=== PATIENT | male | born 1935 | race Caucasian/White ===

== ENCOUNTER 2017-01-20 09:28 | Outpatient (CLI) | payer MEDICARE | END 2017-01-20 09:29 | disposition home or self-care (01) | DX: R42 Dizziness and giddiness (principal); I50.9 Heart failure, unspecified; I73.9 Peripheral vascular disease, unspecified; I48.91 Unspecified atrial fibrillation ==

== ENCOUNTER 2018-03-20 08:52 | Outpatient (CLI) | payer MEDICARE ==
[2018-03-20 13:02] LABS: DIGOXIN 0.5 ng/mL
== END 2018-03-20 08:53 | disposition home or self-care (01) ==
LOC: LAB.WCP 08:52
PROVIDERS: ATTEND Family Medicine
DX: I25.5 Ischemic cardiomyopathy (principal); I73.9 Peripheral vascular disease, unspecified; R29.898 Other symptoms and signs involving the musculoskeletal system
CPT/HCPCS: 36415; 80162; 82607; 83921

== ENCOUNTER 2019-01-08 08:00 | Outpatient (CLI) | payer MEDICARE ==
[2019-01-08 19:06] LABS: CALCIUM 8.8 mg/dL (8.5-10.3); CREATININE 1.1 mg/dL (0.6-1.2); URIC ACID 6.7 mg/dL (2.6-7.2)
== END 2019-01-08 23:59 | disposition home or self-care (01) ==
LOC: LAB.WCP 08:00
PROVIDERS: ATTEND Family Medicine
DX: M10.9 Gout, unspecified (principal)
CPT/HCPCS: 36415; 80048; 84550

== ENCOUNTER 2019-08-11 15:20 | Outpatient (CLI) | payer MEDICARE ==
[2019-08-11 19:20] LABS: BASOPHILS # (AUTO) 0.1 10^3/uL (0.0-0.1); BASOPHILS % (AUTO) 0.8 %; EOSINOPHILS # (AUTO) 0.3 10^3/uL (0.0-0.7); EOSINOPHILS % (AUTO) 2.9 %; HGB - HEMOGLOBIN 8.2 g/dL (14.0-18.0); LYMPHOCYTES # (AUTO) 1.2 10^3/uL (1.5-3.5); LYMPHOCYTES % (AUTO) 13.1 %; MEAN CORPUSCULAR HEMOGLOBIN 29.1 pg (27.0-31.0); MEAN CORPUSCULAR HGB CONC 29.9 g/dL (32.0-36.0); MEAN CORPUSCULAR VOLUME 97.2 fL (80.0-94.0); MONOCYTES # (AUTO) 0.6 10^3/uL (0.0-1.0); MONOCYTES % (AUTO) 6.4 %; NEUTROPHILS # (AUTO) 6.9 10^3/uL (1.5-6.6); NEUTROPHILS % (AUTO) 76.1 %; PLT - PLATELET COUNT 265 10^3/uL (130-450); RED BLOOD COUNT 2.82 10^6/uL (4.70-6.10); RED CELL DISTRIBUTION WIDTH 16.9 % (12.0-15.0); WHITE BLOOD COUNT 9.1 x10^3/uL (4.8-10.8)
[2019-08-11 19:38] LABS: ALBUMIN 3.9 g/dL (3.2-5.5); ALBUMIN/GLOBULIN RATIO 1.2 (1.0-2.2); BILIRUBIN,TOTAL 0.6 mg/dL (0.2-1.0); CALCIUM 8.7 mg/dL (8.5-10.3); CREATININE 1.7 mg/dL (0.6-1.2); TOTAL PROTEIN 7.1 g/dL (6.7-8.2)
[2019-08-11 19:47] LABS: FERRITIN 21.6 ng/mL (23.9-336.2)
== END 2019-08-11 23:59 | disposition home or self-care (01) ==
LOC: LAB.WCP 15:20
PROVIDERS: ATTEND Family Medicine
DX: D64.9 Anemia, unspecified (principal)
CPT/HCPCS: 36415; 80053; 82607; 82728; 83540; 84466; 85025

== ENCOUNTER 2019-08-14 13:43 | Inpatient (IN) | payer MEDICARE ==
--- NOTE | 2019-08-14 14:22 | ED Physician Documentation ---
History of Present Illness - Stated complaint Stated Complaint: weakness - Chief complaint Chief Complaint: Neuro - Additonal information Additional information: This is an 83-year-old male with a history of past GI bleed, pacemaker, who pre sents with weakness. Patient has been noticing some very dark stools for around 1 month, he has been progressively weaker during this time. He had labs drawn for preoperative screening for a watchman procedure, and this came back with hemoglobin of 7.6. He does not know what his previous hemoglobin was. He denies any bright red blood per rectum. This morning he felt so weak that his to help him get dressed. No chest pain, no shortness of breath. He used to be on aspirin and Plavix but these were stopped recently because of concern for GI bleed. Review of Systems Constitutional: denies: Fever Nose: denies: Rhinorrhea / runny nose Cardiac: denies: Chest pain / pressure Respiratory: denies: Dyspnea GI: reports: Bloody / black stool. denies: Abdominal Pain : denies: Dysuria Skin: denies: Rash Neurologic: reports: Generalized weakness PD PAST MEDICAL HISTORY - Past Medical History Cardiovascular: Congestive heart failure, Hypertension, High cholesterol, [place], Atrial fibrillation Respiratory: Pneumonia Endocrine/Autoimmune: None GI: GERD, GI bleed : None HEENT: Chronic hearing loss Musculoskeletal: None - Past Surgical History Past Surgical History: Yes Ortho: Rotator cuff repair, Other Cardiovascular: CABG, Coronary stent, Vascular surgery - Present Medications Home Medications: Ambulatory Orders Medication Instructions Recorded Confirmed Allopurinol 300 mg PO DAILY 10/24/14 08/14/19 Atorvastatin Calcium 40 mg PO QPM 10/24/14 08/14/19 Carbidopa/Levodopa [Carbidopa-Levo 1 tab PO QPM PRN 10/24/14 08/14/19 10-100 mg Odt] Carvedilol 37.5 mg PO BID 10/24/14 08/14/19 Furosemide [Lasix] 40 mg PO DAILY 10/24/14 08/14/19 Gabapentin 300 mg PO QPM 10/24/14 08/14/19 Losartan Potassium 50 mg PO BID 10/24/14 08/14/19 Famotidine 10 mg PO QPM 11/24/14 08/14/19 Amlodipine Besylate 5 mg PO QPM 08/14/19 08/14/19 Calcium Carbonate/Vitamin D3 1 tab PO BID 08/14/19 08/14/19 [Calcium 600 + Vit D 400 Tablet] Carbidopa/Levodopa 2 tab PO 1700 08/14/19 08/14/19 [Carbidopa-Levodopa 10-100 Tab] Cyanocobalamin [Vitamin B-12] 1,000 mcg IM Q28D 08/14/19 08/14/19 Ferrous Sulfate 325 mg PO DAILY 08/14/19 08/14/19 Pantoprazole Sodium 40 mg PO QDAC 08/14/19 08/14/19 - Allergies Allergies/Adverse Reactions: Allergies Allergy/AdvReac Type Severity Reaction Status Date / Time lisinopril AdvReac Unknown Verified 08/14/19 13:56 niacin AdvReac Unknown Verified 08/14/19 13:56 simvastatin [From Zocor] AdvReac Unknown Verified 08/14/19 13:56 - Social History Does the pt smoke?: No Smoking Status: Never smoker Does the pt drink ETOH?: Yes Does the pt have substance abuse?: No - Immunizations Immunizations are current?: No Immunizations: TDAP >10years/unknown - POLST Patient has POLST: No PD ED PE NORMAL - Vitals Vital signs reviewed: Yes - General General: Alert and oriented X 3 - HEENT HEENT: Atraumatic, PERRL - Neck Neck: Supple, no meningeal sign - Cardiac Cardiac: RRR, Other (Paced rhythm on the monitor) - Respiratory Respiratory: No respiratory distress, Clear bilaterally - Abdomen Abdomen: Soft, Non tender, Non distended - Rectal Rectal: Other (Guaiac positive stool) - Extremities Extremities: No deformity - Neuro Neuro: Alert and oriented X 3 Results - Vitals Vitals: Oxygen O2 Source [With Activity] Room air O2 Source Room air - Labs Labs: Microbiology 08/14/19 15:45 Blood Culture - Preliminary Blood 08/14/19 15:50 Blood Culture - Preliminary Blood Laboratory Tests 08/14/19 08/14/19 08/14/19 14:06 14:06 14:06 WBC 36.3 H* RBC 2.65 L Hgb 7.6 L Hct 25.3 L MCV 95.5 H MCH 28.7 MCHC 30.0 L RDW 17.0 H Plt Count 245 MPV 12.8 H Neut # (Auto) Not Reportable Lymph # (Auto) Not Reportable Warrick # (Auto) Not Reportable Eos # (Auto) Not Reportable Baso # (Auto) Not Reportable Absolute Nucleated RBC Not Reportable Total Counted 100 Band Neuts % (Manual) 5 Abnorm Lymph % (Manual) 0 Nucleated RBC % Not Reportable Neutrophils # (Manual) 34.5 H Lymphocytes # (Manual) 0.4 L Monocytes # (Manual) 1.1 H Eosinophils # (Manual) 0.4 Basophils # (Manual) 0.0 Differential Comment MANUAL DIFFERENTIAL Manual Slide Review Indicated Platelet Estimate NORMAL (130-450,000) Platelet Morphology NORMAL APPEARANCE RBC Morph Micro Appear 2+ HYPOCHROMASIA PT 15.4 H INR 1.4 H VBG pH VBG pCO2 VBG pO2 VBG HCO3 VBG Total CO2 VBG O2 Saturation VBG Base Excess Sodium 139 Potassium 3.9 Chloride 105 Carbon Dioxide 20 L Anion Gap 14.0 H BUN 49 H Creatinine 2.4 H Estimated GFR (MDRD) 26 L Glucose 201 H Lactic Acid Calcium 8.0 L Total Bilirubin 0.9 AST 22 ALT 20 Alkaline Phosphatase 58 Total Protein 6.7 Albumin 3.5 Globulin 3.2 Albumin/Globulin Ratio 1.1 Lipase 34 Blood Type Blood Type Recheck Antibody Screen Crossmatch IS Only 08/14/19 08/14/19 08/14/19 14:06 15:10 15:50 WBC RBC Hgb Hct MCV MCH MCHC RDW Plt Count MPV Neut # (Auto) Lymph # (Auto) Warrick # (Auto) Eos # (Auto) Baso # (Auto) Absolute Nucleated RBC Total Counted Band Neuts % (Manual) Abnorm Lymph % (Manual) Nucleated RBC % Neutrophils # (Manual) Lymphocytes # (Manual) Monocytes # (Manual) Eosinophils # (Manual) Basophils # (Manual) Differential Comment Manual Slide Review Platelet Estimate Platelet Morphology RBC Morph Micro Appear PT INR VBG pH VBG pCO2 VBG pO2 VBG HCO3 VBG Total CO2 VBG O2 Saturation VBG Base Excess Sodium Potassium Chloride Carbon Dioxide Anion Gap BUN Creatinine Estimated GFR (MDRD) Glucose Lactic Acid 3.2 H* Calcium Total Bilirubin AST ALT Alkaline Phosphatase Total Protein Albumin Globulin Albumin/Globulin Ratio Lipase Blood Type O POSITIVE Blood Type Recheck O POSITIVE Antibody Screen NEGATIVE Crossmatch IS Only See Detail 08/14/19 15:50 WBC RBC Hgb Hct MCV MCH MCHC RDW Plt Count MPV Neut # (Auto) Lymph # (Auto) Warrick # (Auto) Eos # (Auto) Baso # (Auto) Absolute Nucleated RBC Total Counted Band Neuts % (Manual) Abnorm Lymph % (Manual) Nucleated RBC % Neutrophils # (Manual) Lymphocytes # (Manual) Monocytes # (Manual) Eosinophils # (Manual) Basophils # (Manual) Differential Comment Manual Slide Review Platelet Estimate Platelet Morphology RBC Morph Micro Appear PT INR VBG pH 7.399 VBG pCO2 31.7 L VBG pO2 33.4 VBG HCO3 19.2 L VBG Total CO2 20.1 L VBG O2 Saturation 64.4 VBG Base Excess -5.0 L Sodium Potassium Chloride Carbon Dioxide Anion Gap BUN Creatinine Estimated GFR (MDRD) Glucose Lactic Acid Calcium Total Bilirubin AST ALT Alkaline Phosphatase Total Protein Albumin Globulin Albumin/Globulin Ratio Lipase Blood Type Blood Type Recheck Antibody Screen Crossmatch IS Only - Rads (name of study) CXR Radiology: Other (L>R airspace opacity) CT abd/pelvis Radiology: Other (LLL pneumonia, multiple incidental abdominal findings) PD MEDICAL DECISION MAKING - ED course Complexity details: considered differential (GI bleed, PNA, UTI, bacteremia, appendicitis, cholecystitis) ED course: Pt is hemodynamically stable on arrival, BP normal but he is paced so may not mount a typical tachycardia. He has guaiac positive stool and a hemoglobin which is 7.6. Given he is symptomatic and has a history of CAD 1 unit of PRBCs was ordered. WBC is also highly elevated, although patient does not have obvious infectious symptoms on history or exam. CXR shows a possible LLL PNA, which is confirmed on CT. Blood cultures drawn and broad spectrum abx started. Pt was admitted for further work up of his leukocytosis and GI bleed. Lactate is elevated, which may be reflective of sepsis or reduced perfusion from GI bleed. He has a cardiac history and is at risk for overload so IV fluids are best used judiciously, and is not a good candidate for 30ml/kg. He remains hemodynamically stable on admission. Departure - Departure Disposition: 66 [facility] DC/Xfer Clinical Impression: GI bleed Qualifiers: GI bleed type/associated pathology: melena Qualified Code(s): K92.1 - Melena Leukocytosis Qualifiers: Leukocytosis type: unspecified Qualified Code(s): D72.829 - Elevated white blood cell count, unspecified Condition: Stable Discharge Date/Time: 08/14/19 18:05
[2019-08-14 14:23] LABS: BASOPHILS % (AUTO) 0.1 %; HGB - HEMOGLOBIN 7.6 g/dL (14.0-18.0); LYMPHOCYTES % (AUTO) 1.9 %; MEAN CORPUSCULAR HEMOGLOBIN 28.7 pg (27.0-31.0); MEAN CORPUSCULAR VOLUME 95.5 fL (80.0-94.0); MEAN PLATELET VOLUME 12.8 fL (7.4-11.4); MONOCYTES % (AUTO) 3.1 %; NEUTROPHILS % (AUTO) 90.3 %; PLT - PLATELET COUNT 245 10^3/uL (130-450); RED BLOOD COUNT 2.65 10^6/uL (4.70-6.10)
[2019-08-14 14:47] LABS: ALBUMIN 3.5 g/dL (3.2-5.5); ALBUMIN/GLOBULIN RATIO 1.1 (1.0-2.2); BILIRUBIN,TOTAL 0.9 mg/dL (0.2-1.0); CREATININE 2.4 mg/dL (0.6-1.2); TOTAL PROTEIN 6.7 g/dL (6.7-8.2)
[2019-08-14 15:02] LABS: WHITE BLOOD COUNT 36.3 x10^3/uL (4.8-10.8)
[2019-08-14 15:03] LABS: ABNORMAL LYMPHS % (MANUAL) 0 %
[2019-08-14] MEDS ORDERED: PIPERACILLIN/TAZOBACTAM 3.375 GM in SODIUM CHLORIDE 0.9% MINIBAG 100 ML IV STA (15:29)
[2019-08-14] MEDS ORDERED: VANCOMYCIN INJ 1.5 GM in SODIUM CHLORIDE 0.9% 500 ML IV STA (15:30)
[2019-08-14 15:31] LABS: BAND NEUTROPHILS % (MANUAL) 5 %; EOSINOPHILS # (MANUAL) 0.4 10^3/uL (0-0.7); LYMPHOCYTES # (MANUAL) 0.4 10^3/uL (1.5-3.5); LYMPHOCYTES % (MANUAL) 1 %; MONOCYTES # (MANUAL) 1.1 10^3/uL (0.0-1.0)
[2019-08-14 15:32] LABS: DIFFERENTIAL COMMENT MANUAL DIFFERENTIAL; PLATELET ESTIMATE, MANUAL NORMAL (130-450,000) (NORMAL); PLATELET MORPHOLOGY NORMAL APPEARANCE (NORMAL)
[2019-08-14 15:33] LABS: INR 1.4 (0.8-1.2); PT - PROTHROMBIN TIME 15.4 secs (9.9-12.6)
[2019-08-14] MEDS ORDERED: LACTATED RINGERS 1,000 ML IV STA (15:38)
[2019-08-14 15:59] LABS: VBG PCO2 31.7 mmHg (41-51); VBG PH 7.399 (7.31-7.41); VBG PO2 33.4 mmHg (25-47); VBG TOTAL CO2 20.1 mmol/L (24-29)
--- NOTE | 2019-08-14 16:06 | XRAY Report ---
Reason: chest pain Procedure Date: 08/14/2019 Accession Number: [id number] / [id number] Procedure: XR - Chest 1 View X-Ray CPT Code: 42287 Final Report FULL RESULT: EXAM: CHEST RADIOGRAPHY EXAM DATE: 08/14/2019 03:43 PM. CLINICAL HISTORY: Chest pain. COMPARISON: 11/24/2014 3:14 PM. TECHNIQUE: 1 view. FINDINGS: Lungs/Pleura: Left greater than right lower lung predominant pulmonary opacities could reflect pulmonary edema or infection. Probable small basilar pleural effusions. No pneumothorax. Mediastinum: Cardiomegaly again noted. Lead for cardiac defibrillator in expected position. Other: None. IMPRESSION: 1. Left greater than right lower lung predominant pulmonary opacities could reflect pulmonary edema or infection. 2. Probable small bibasilar pleural effusions. 3. Cardiomegaly again seen. RADIA
[2019-08-14] MEDS ORDERED: ONDANSETRON 4 MG/2 ML VIAL IVP PRN (16:26)
[2019-08-14] MEDS ORDERED: WATER FOR INJECTION,STERILE 20 ML ONE (16:43)
--- NOTE | 2019-08-14 16:45 | CT Report ---
Reason: leukocytosis, Gi bleed Procedure Date: 08/14/2019 Accession Number: [id number] / [id number] Procedure: CT - Abdomen/Pelvis WO CPT Code: Final Report FULL RESULT: EXAM: CT ABDOMEN AND PELVIS EXAM DATE: 08/14/2019 04:11 PM. CLINICAL HISTORY: Leukocytosis, Gi bleed. COMPARISONS: None. TECHNIQUE: Routine helical CT imaging was performed through the abdomen and pelvis. IV contrast: None. Enteric contrast: No. Reconstructions: Coronal and sagittal. In accordance with CT protocol optimization, one or more of the following dose reduction techniques were utilized for this exam: automated exposure control, adjustment of mA and/or KV based on patient size, or use of iterative reconstructive technique. FINDINGS: Lung Bases: Airspace consolidation at the left lower lobe and left base is worrisome for infection. Liver: Curvilinear 1.8 cm density layering along the left intrahepatic portal triads (3/24 is of unclear etiology. This may reflect sludge within the left-sided bile ducts. No other focal liver lesions seen on noncontrast evaluation. Gallbladder/Bile Ducts: Gallstones layer at the gallbladder neck. No pericholecystic fluid. No biliary dilation. Spleen: Normal. Pancreas: Normal. Adrenal Glands: Unremarkable right adrenal. 1.5 cm a left adrenal nodule measuring 7 HU is consistent with a benign adenoma. Kidneys: No renal calculi nor hydronephrosis bilaterally. Tiny small bilateral hemorrhagic renal cyst in order. Exophytic 4 cm left upper pole cystic lesion shows suggestion of internal complexity. Peritoneal Cavity/Bowel: No pneumoperitoneum or ascites. Unremarkable visualized stomach. Normal caliber small bowel loops without signs of wall thickening. No layering high-density material within small bowel loops. Normal appendix. Moderate sigmoid colonic diverticulosis is noted without evidence for acute diverticulitis on noncontrast CT. No discrete intra-abdominal fluid collections. No enlarged intraperitoneal or retroperitoneal lymph nodes. Pelvic Organs: Unremarkable urinary bladder for degree of distention. Prostate and seminal vesicles appear normal by CT. No enlarged pelvic or inguinal lymph nodes. Vasculature: Diffuse atherosclerotic calcifications. No aneurysms. Bones: Multilevel degenerative disk disease in the spine. No focal suspicious osseous lesions. Other: None. IMPRESSION: 1. Dense airspace consolidation at the left lower lobe is worrisome for pneumonia. 2. No acute abnormality is evident in the abdomen or pelvis on noncontrast CT. Normal caliber bowel loops. Normal appendix. 3. Cholelithiasis noted. 4. Moderate sigmoid colonic diverticulosis without evidence of acute diverticulitis. 5. Indeterminate 1.8 cm curvilinear density projecting within the left intrahepatic portal triads is of unclear etiology. Findings may reflect mucus or sludge within the left-sided bile ducts. No associated biliary dilation. 6. Incidental left upper pole exophytic cystic lesion is seen with internal complexity. Dedicated renal mass protocol CT or MRI should be considered for further nonemergent evaluation. 7. Incidental benign left adrenal lipid rich adenoma. RADIA
[2019-08-14] MEDS ORDERED: SODIUM CHLORIDE 0.9% 1,000 ML IV SCH (17:00)
[2019-08-14] MEDS ORDERED: VANCOMYCIN PER PHARMACY 1 GM in SODIUM CHLORIDE 0.9% 250 ML IV SCH (17:00)
--- NOTE | 2019-08-14 17:37 | HISTORY & PHYSICAL EXAMINATION ---
Chief Complaint - Chief Complaint Chief Complaint: weakness and dark stool History of Present Illness - History of Present Illness HPI Comment/Other: Mr. Hernandez is a 83-year-old pleasant male with a history of recently GI bleed, pacemaker, CHF, CAD with a CABG in 2000, CA on 07/2014 with 3 stents placements, HTN, who presents ER complain of weakness.He report he has been progressively weaker. Pt report he was so weak today morning, he can not get out from bed. Pt report he has been noticing some very dark stools for around a few month, he only took his iron pill recently. Today his HGB is 7.6. Pt report his aspirin and Plavix were stopped by his doctor because of recently GI bleed. Per ER provider report pt's occult test is positive. Pt's WBC is 36 in today ER route lab test, lactic acid is 3.2. pt report cough with sputum at home but he denies fever, chill. CXR and CT of abdomen reveal left pneumonia, otherwise CT of abdomen is unremarkable. pt is admitted for above medical reasons. History - Past Medical History Cardiovascular: reports: Congestive heart failure, Hypertension, High cholesterol, [place], Atrial fibrillation Respiratory: reports: Pneumonia Endocrine/Autoimmune: reports: None GI: reports: GERD, GI bleed : reports: None HEENT: reports: Chronic hearing loss Musculoskeletal: reports: None MRSA Hx?: No - Past Surgical History Ortho: reports: Rotator cuff repair, Other Cardiovascular: reports: CABG, Coronary stent, Vascular surgery - Family & Social History Family History: Mother: , CVA/TIA, Father: , Cancer Family History Comment/Other: pt report his father from [facility] cancer, his mother from stroke. he has two health children. he is living at [place] with his . Social History Notes: pt report he quit smoking 50 yrs, he has no issue on alcohol or drug. - POLST Patient has POLST: No POLST Status: DNR Meds/Allgy - Home Medications Home Medications: Ambulatory Orders Medication Instructions Recorded Confirmed Allopurinol 300 mg PO DAILY 10/24/14 08/14/19 Atorvastatin Calcium 40 mg PO QPM 10/24/14 08/14/19 Carbidopa/Levodopa [Carbidopa-Levo 1 tab PO QPM PRN 10/24/14 08/14/19 10-100 mg Odt] Carvedilol 37.5 mg PO BID 10/24/14 08/14/19 Furosemide [Lasix] 40 mg PO DAILY 10/24/14 08/14/19 Gabapentin 300 mg PO QPM 10/24/14 08/14/19 Losartan Potassium 50 mg PO BID 10/24/14 08/14/19 Famotidine 10 mg PO QPM 11/24/14 08/14/19 Amlodipine Besylate 5 mg PO QPM 08/14/19 08/14/19 Calcium Carbonate/Vitamin D3 1 tab PO BID 08/14/19 08/14/19 [Calcium 600 + Vit D 400 Tablet] Carbidopa/Levodopa 2 tab PO 1700 08/14/19 08/14/19 [Carbidopa-Levodopa 10-100 Tab] Cyanocobalamin [Vitamin B-12] 1,000 mcg IM Q28D 08/14/19 08/14/19 Ferrous Sulfate 325 mg PO DAILY 08/14/19 08/14/19 Pantoprazole Sodium 40 mg PO QDAC 08/14/19 08/14/19 - Allergies Allergies/Adverse Reactions: Allergies Allergy/AdvReac Type Severity Reaction Status Date / Time lisinopril AdvReac Unknown Verified 08/14/19 13:56 niacin AdvReac Unknown Verified 08/14/19 13:56 simvastatin [From Zocor] AdvReac Unknown Verified 08/14/19 13:56 Review of Systems - Constitutional Constitutional: reports: Fatigue. denies: Fever, Chills, Malaise, Weakness, Poor appetite, Diaphoresis, Night sweats, Weight gain, Weight loss - Eyes Eyes: denies: Pain, Amaurosis, Blurred vision, Spots in vision, Field loss, Vision loss, Dipolpia - Ears, Nose & Throat Ears, Nose & Throat: denies: Ear pain, Hearing loss, Hearing aids, Tinnitus, Vertigo, Nasal pain, Nasal discharge, Nosebleeds, Nasal obstruction, Postnasal drainage, Dentures, Sore throat, Hoarseness, Mouth lesions, Bleeding gums - Cardiovascular Cariovascular: denies: Irregular heart rate, Palpitations, Chest pain, Edema, Lightheadedness, Syncope, Exertional dyspnea, Decr. exercise tolerance - Respiratory Respiratory: reports: Cough, Sputum production, SOB with exertion. denies: Wheezing, Snoring, Hemoptysis, Orthopnea, SOB at rest - Gastrointestinal Gastrointestinal: reports: Black stools. denies: Abdominal pain, Abdominal distention, Constipation, Diarrhea, Change in bowel habits, Rectal bleeding, Bloody stools, Nausea, Vomiting, Bile emesis, Emmanuel blood emesis, Coffee grounds emesis - Genitourinary Genitourinary: denies: Dysuria, Frequency, Urgency, Hematuria, Incontinence, Flank pain, Nocturia, Urethral discharge - Musculoskeletal Musculoskeletal: denies: Muscle pain, Back pain, Muscle aches, Stiffness, Limited range of motion, Muscle weakness, Gout, Joint pain - Integumentary Integumentary: denies: Rash, Pruritis, Lesions, Dryness, Lumps, Acne, Pigment changes, Nail changes - Neurological Neurological: denies: General weakness, Focal weakness, Headache, Dizziness, Numbness, Memory problems, Pre-existing deficit, Abnormal gait, Seizures, Incoordination, Slurred speech - Psychiatric Psychiatric: denies: Depression, Anxiety, Suicidal, Delusions, Hallucinations, Homicidal - Endocrine Endocrine: denies: Polyuria, Polydypsia, Polyphagia, Intolerance to cold - Hematologic/Lymphatic Hematologic/Lymphatic: denies: Bruising, Petechiae, Blood clots, Lymphadenopathy Exam - Vital Signs Reviewed Vital Signs: Yes Vital Signs: Vital Signs x48h Temp Pulse Resp BP Pulse Ox 08/14/19 16:38 77 16 100/50 L 91 L 08/14/19 15:04 70 18 109/50 L 92 08/14/19 14:11 70 16 104/49 L 93 08/14/19 13:51 36.8 C 70 15 106/47 L 94 - Physical Exam General Appearance: positive: No acute distress, Alert. negative: Lethargic Eyes Bilateral: positive: Normal inspection, PERRL, No lid inflammation ENT: positive: ENT inspection nml, Pharynx nml, No signs of dehydration. negative: Purulent nasal drainage, Dry mucous membranes Neck: positive: Nml inspection, Thyroid nml, No JVD, Trachea midline. negative: Thyromegaly, Lymphadenopathy (R), Lymphadenopathy (L), Stiff neck, Tracheal deviation Respiratory: positive: Chest non-tender, No respiratory distress. negative: Wheezes, Rales, Rhonchi Cardiovascular: positive: Regular rate & rhythm, Systolic murmur. negative: Irregularly irregular, Extrasystoles, Tachycardia, Bradycardia Peripheral Pulses: positive: 2+ Abdomen: positive: Non-tender, No organomegaly, Nml bowel sounds, No distention. negative: Tenderness, Guarding, Rebound Back: positive: Nml inspection. negative: CVA tenderness (R), CVA tenderness (L) Skin: positive: Color nml, No rash, Warm, Dry. negative: Cyanosis, Diaphoresis, Pallor Extremities: positive: Non-tender, Nml appearance. negative: Calf tenderness, Rhonda's sign/cords Neurologic/Psychiatric: positive: Oriented x3, Sensation nml. negative: Weakn ess, Sensory loss, Facial droop, Slurred/abnml speech, Depressed mood/affect Conclusion/Plan - Problem List (1) GI bleed Conclusion/Plan: pt report about one month very dark stool, pt had recent GI bleed, and his aspirin and Plavix was stopped. occult test is positive. pt had HGB 7.6. pt felt very tired today. GI bleed is like from upper GI agree to have one unit of blood by ER consult with GI surgeon H&H to monitor PPI IV Qualifiers: GI bleed type/associated pathology: melena Qualified Code(s): K92.1 - Melena (2) Anemia Conclusion/Plan: it is likely from acute GI bleed. pt will have one unit of blood. lab monitor, resume home iron pill (3) Pneumonia Conclusion/Plan: pt present cough with sputum. CT and CXR reveals left side pneumonia. WBC is 36, and elevated lactic acid 3.2 plan: antibiotics Zosyn and Vancomycin gently IVF of NS recheck lactic acid. lab, vital monitor (4) Systolic congestive heart failure Conclusion/Plan: pt had ECHO at 2014 with EF 30-35%. pt had systolic murmur now. pt has significant cardiac hx, ans s/p of CABG and stents hold home lasix now because of acute infection with elevated lactic acid, and A KI reconcile home Coreg tele and vital monitor check ECHO (5) Pacemaker Conclusion/Plan: pt has pacemaker, pt is stable, pt denies chest pain, palpitation. HR is in the normal arrange now. order EKG, tele and vital monitor (6) Acute kidney injury Conclusion/Plan: pt has creatinine 2.4 today, pt had 1.7 creatinine 3 days ago. it is likely from pt's dehydration. IVF of NS, but precaution of fluid overload. pt has hx of systolic CHF. lab monitor (7) Do not intubate, cardiopulmonary resuscitation (CPR)-only code status Conclusion/Plan: pt and his family request DNR/DNI - Lab Results Fish Bones: 08/14/19 14:06 08/14/19 14:06 Core Measures - Anticipated LOS I expect patient to be DC'd or transferred within 96 hours.: Yes - DVT/VTE - Prophylaxis VTE/DVT Device ordered at admit?: Yes VTE/DVT Prophylaxis med ordered at admit?: Yes
[2019-08-14] MEDS ORDERED: SODIUM CHLORIDE 0.9% 500 ML ONE (19:08)
[2019-08-14] MEDS ORDERED: FAMOTIDINE 20 MG TABLET PO SCH (21:00)
[2019-08-14] MEDS ORDERED: HEPARIN 5,000 UNIT/ML VIAL SUBQ SCH (21:00)
[2019-08-14] MEDS: SODIUM CHLORIDE FLUSH 0.9% 10 ML SYRINGE IVP PRN ×2 (21:37→22:03)
[2019-08-14] MEDS: SODIUM CHLORIDE FLUSH 0.9% 10 ML SYRINGE IVP SCH (21:37)
[2019-08-14] MEDS: PIPERACILLIN/TAZOBACTAM 3.375 GM in SODIUM CHLORIDE 0.9% MINIBAG 100 ML IV SCH ×2 (21:37→22:03)
[2019-08-14] MEDS: SODIUM CHLORIDE 0.9% 1,000 ML IV SCH (21:44)
[2019-08-14] MEDS: carvediloL 12.5 MG TABLET PO SCH (21:59)
[2019-08-14] MEDS: CARBIDOPA/LEVODOPA 10 MG/100 MG TABLET PO SCH (22:01)
[2019-08-14] MEDS: PANTOPRAZOLE 40 MG VIAL IVP SCH (22:01)
[2019-08-15 01:56] LABS: HGB - HEMOGLOBIN 7.3 g/dL (14.0-18.0); MEAN CORPUSCULAR HGB CONC 30.5 g/dL (32.0-36.0); MEAN CORPUSCULAR VOLUME 94.8 fL (80.0-94.0); MEAN PLATELET VOLUME 12.6 fL (7.4-11.4); RED BLOOD COUNT 2.52 10^6/uL (4.70-6.10); RED CELL DISTRIBUTION WIDTH 16.6 % (12.0-15.0); WHITE BLOOD COUNT 29.6 x10^3/uL (4.8-10.8)
[2019-08-15] MEDS: PIPERACILLIN/TAZOBACTAM 3.375 GM in SODIUM CHLORIDE 0.9% MINIBAG 100 ML IV SCH ×4 (05:02→20:24)
[2019-08-15] MEDS: CARBIDOPA/LEVODOPA 10 MG/100 MG TABLET PO SCH ×2 (06:58→17:35)
[2019-08-15 07:02] LABS: CALCIUM 7.9 mg/dL (8.5-10.3); CREATININE 2.4 mg/dL (0.6-1.2); MAGNESIUM 2.3 mg/dL (1.7-2.8)
[2019-08-15 07:03] LABS: BASOPHILS # (AUTO) 0.1 10^3/uL (0.0-0.1); BASOPHILS % (AUTO) 0.5 %; EOSINOPHILS # (AUTO) 0.1 10^3/uL (0.0-0.7); EOSINOPHILS % (AUTO) 0.2 %; LYMPHOCYTES # (AUTO) 1.1 10^3/uL (1.5-3.5); LYMPHOCYTES % (AUTO) 3.7 %; MEAN CORPUSCULAR HGB CONC 30.7 g/dL (32.0-36.0); MEAN CORPUSCULAR VOLUME 94.6 fL (80.0-94.0); MEAN PLATELET VOLUME 12.3 fL (7.4-11.4); MONOCYTES % (AUTO) 3.4 %; NEUTROPHILS # (AUTO) 25.2 10^3/uL (1.5-6.6); NEUTROPHILS % (AUTO) 89.2 %; PLT - PLATELET COUNT 188 10^3/uL (130-450); RED BLOOD COUNT 2.76 10^6/uL (4.70-6.10); WHITE BLOOD COUNT 28.3 x10^3/uL (4.8-10.8)
[2019-08-15 07:20] LABS: BILIRUBIN,URINE NEGATIVE (NEGATIVE); GLUCOSE, URINE (UA) NEGATIVE (NEGATIVE); KETONES,URINE (UA) NEGATIVE (NEGATIVE); LEUKOCYTE ESTERASE, URINE NEGATIVE (NEGATIVE); NITRITE,URINE NEGATIVE (NEGATIVE); OCCULT BLOOD,URINE TRACE-LYSE (NEGATIVE); PH,URINE 5.5 PH (5.0-7.5); PROTEIN,URINE NEGATIVE (NEGATIVE); UROBILINOGEN,URINE 0.2 (NORMAL) E.U./dL (NORMAL)
[2019-08-15 07:23] LABS: CLARITY,URINE CLEAR (CLEAR)
[2019-08-15 07:52] LABS: DIFFERENTIAL COMMENT MANUAL=AUTO DIFF
[2019-08-15 07:53] LABS: PLATELET ESTIMATE, MANUAL NORMAL (130-450,000) (NORMAL); PLATELET MORPHOLOGY NORMAL APPEARANCE (NORMAL)
[2019-08-15] MEDS ORDERED: NITROGLYCERIN SL 0.4 MG TABLET SL PRN (08:27)
[2019-08-15] MEDS: PANTOPRAZOLE 40 MG VIAL IVP SCH ×2 (09:04→20:25)
[2019-08-15] MEDS: FERROUS SULFATE 325 MG TABLET PO SCH (09:04)
[2019-08-15] MEDS: carvediloL 12.5 MG TABLET PO SCH ×2 (09:04→17:35)
[2019-08-15] MEDS: SODIUM CHLORIDE FLUSH 0.9% 10 ML SYRINGE IVP SCH ×3 (09:05→17:35)
[2019-08-15] MEDS: SODIUM CHLORIDE 0.9% 1,000 ML IV SCH ×2 (10:06→20:50)
[2019-08-15 10:07] LABS: HGB - HEMOGLOBIN 7.6 g/dL (14.0-18.0)
--- NOTE | 2019-08-15 13:35 | PROVIDER PROGRESS NOTE ---
Assessment/Plan - Problem List (1) Streptococcal bacteremia Assessment/Plan: He presented with a several week cough, and labs showed high WBC and lactic acid level. The blood cx became (+) quickly, growing Strep. He is on empiric Vanco and Unasyn, which would cover the Strep. The L.A is now normal and WBC also improving. Await final blood cx results to adjust antibx. Will obtain a new complete Echo (for LVEF and check valves for endocarditis). I spoke to the patient, his and son at bedside, and updated them on all his diagnoses. (2) Community acquired pneumonia Assessment/Plan: He has had a cough for weeks, but got a fever and "more nasally" 2 days ago. CXR confirmed a pneumonia. Empiric iv antibiotics begun yesterday evening. (3) Anemia Assessment/Plan: He got 1U PRBCs when admission labs found severe anemaia. He reported being very weak, "especially in the legs with walking", for weeks. A heme (+) stool was found at his PCP's office. Follow CBC daily. (4) GI bleed Qualifiers: GI bleed type/associated pathology: melena Qualified Code(s): K92.1 - Melena Assessment/Plan: Probable GI blood loss anemia, given heme(+) stool at PCP. He will be seen by Dr Rodriguez for an EGD, planned for after about 48 hours of antibiotics (5) Acute kidney injury Assessment/Plan: Creat was 2.4 at admission and no better today, after 1 day of iv fluids at 83 cc/hr. Will increase fluid iv rate slightly. Follow BMP daily. (6) Hx of coronary artery disease Assessment/Plan: He was on ASA and PLavix, which are stopped due to suspiscion of GI blood loss anemia. His B-eneida continues and sl NTG orderd as at home, only prn Nitrates. (7) Pacemaker Assessment/Plan: This may be an AICD (8) Chronic systolic congestive heart failure, NYHA class 2 Assessment/Plan: The last Echo done here was in 2014, LVEF was 30-35%. He is on Carvedilol. The allergy lists ILIANA, therefore he is not on that. He needs a slightly higher fluid rate today, due to continued MATTHEW. Will obtain a new complete Echo (for LVEF and check valves). Watch I's and O's, daily weight, BMP daily. - Current Meds Current Meds: Current Medications Generic Name Dose Route Start Last Admin Trade Name Freq PRN Reason Stop Dose Admin Carvedilol 37.5 mg 08/14/19 21:00 08/15/19 09:04 Coreg PO 37.5 mg BIDWM AVEL Administration Ferrous Sulfate 325 mg 08/15/19 09:00 08/15/19 09:04 Feosol PO 325 mg DAILY AVEL Administration Sodium Chloride 1,000 mls @ 83.3 mls/hr 08/14/19 17:33 08/15/19 10:06 Normal Saline 0.9% IV 08/15/19 17:33 83.3 mls/hr .Q12H1M AVEL Administration Piperacillin Sod/Tazobactam 100 mls @ 25 mls/hr 08/15/19 12:00 08/15/19 12:30 Sod 3.375 gm/ Sodium Chloride IV 25 mls/hr Q8H AVEL Administration Pantoprazole Sodium 40 mg 08/14/19 21:00 08/15/19 09:04 Protonix IVP 40 mg BID AVEL Administration Sodium Chloride 10 ml 08/14/19 16:26 08/14/19 22:03 Normal Saline Flush 0.9% IVP 10 ml PRN PRN Administration NEEDED PER PROVIDER ORDERS Sodium Chloride 10 ml 08/14/19 17:00 08/15/19 09:05 Normal Saline Flush 0.9% IVP Not Given 0100,0900,1700 AVEL - Lab Result Fish Bone Diagrams: 08/16/19 05:32 08/16/19 05:32 - Additional Planning My Orders: My Active Orders 08/15/19 CULTURE, BLOOD #1 [RM] Stat 08/15/19 08:27 Nitroglycerin [Nitrostat] 0.4 mg SL Q5MIN PRN 08/15/19 17:00 Carbidopa/Levodopa 10 [Sinemet 10 mg/100 mg] 1 tab PO 1700 08/15/19 21:00 guaiFENesin [Mucinex] 600 mg PO BID Subjective - Subjective Patient Reports: Resting Comfortably, No Complaints Objective Vital Signs: Vital Signs - 24 hr 08/14/19 08/14/19 08/14/19 13:51 14:11 15:04 Temperature 36.8 C Heart Rate 70 70 70 Heart Rate [ Brachial] Respiratory 15 16 18 Rate Blood Pressure 106/47 L 104/49 L 109/50 L Blood Pressure [Left Brachial artery] Blood Pressure [Right Brachial artery] O2 Saturation 94 93 92 08/14/19 08/14/19 08/14/19 16:38 17:34 18:04 Temperature Heart Rate 77 74 72 Heart Rate [ Brachial] Respiratory 16 18 18 Rate Blood Pressure 100/50 L 114/51 L 106/52 L Blood Pressure [Left Brachial artery] Blood Pressure [Right Brachial artery] O2 Saturation 91 L 96 94 08/14/19 08/14/19 08/14/19 19:00 19:20 19:35 Temperature 36.9 C 37.5 C 37.3 C Heart Rate 70 70 Heart Rate [ 70 Brachial] Respiratory 20 18 18 Rate Blood Pressure 106/43 L 112/49 L Blood Pressure [Left Brachial artery] Blood Pressure 118/48 L [Right Brachial artery] O2 Saturation 93 08/14/19 08/14/19 08/14/19 21:35 23:35 23:52 Temperature 37.3 C 36.7 C 36.7 C Heart Rate 70 70 Heart Rate [ 70 Brachial] Respiratory 18 18 16 Rate Blood Pressure 118/44 L Blood Pressure 106/43 L [Left Brachial artery] Blood Pressure [Right Brachial artery] O2 Saturation 93 92 08/15/19 08/15/19 08/15/19 04:00 08:00 09:17 Temperature 36.9 C 37.0 C Heart Rate Heart Rate [ 69 70 70 Brachial] Respiratory 16 18 Rate Blood Pressure Blood Pressure 110/51 L 104/53 L 118/51 L [Left Brachial artery] Blood Pressure [Right Brachial artery] O2 Saturation 92 93 08/15/19 12:00 Temperature 36.8 C Heart Rate Heart Rate [ 70 Brachial] Respiratory 18 Rate Blood Pressure Blood Pressure 100/47 L [Left Brachial artery] Blood Pressure [Right Brachial artery] O2 Saturation 92 Oxygen O2 Source [With Activity] Room air O2 Source Nasal cannula I&O (Last 24 Hrs): Intake and Output Totals x24h 08/13/19 08/14/19 08/15/19 23:59 23:59 23:59 Intake Total 1857.5 2098.493 Output Total 505 Balance 1857.5 1593.493 General: Alert, No acute distress HEENT: Mucous membr. moist/pink Neck: Supple Neuro: Alert, Non Focal Cardiovascular: Regular rate, No murmurs Respiratory: No respiratory distress, Other (Diminishe breath sounds R base, no wheezing, rales or rhonchi) Abdomen: Soft, No tenderness Extremities: No edema - Results Results: Laboratory Results WBC 28.3 x10^3/uL (4.8-10.8) H 08/15/19 06:43 RBC 2.76 10^6/uL (4.70-6.10) L 08/15/19 06:43 Hgb 7.6 g/dL (14.0-18.0) L 08/15/19 10:00 Hct 24.6 % (42.0-52.0) L 08/15/19 10:00 MCV 94.6 fL (80.0-94.0) H 08/15/19 06:43 MCH 29.0 pg (27.0-31.0) 08/15/19 06:43 MCHC 30.7 g/dL (32.0-36.0) L 08/15/19 06:43 RDW 17.0 % (12.0-15.0) H 08/15/19 06:43 Plt Count 188 10^3/uL (130-450) 08/15/19 06:43 MPV 12.3 fL (7.4-11.4) H 08/15/19 06:43 Neut # (Auto) 25.2 10^3/uL (1.5-6.6) H 08/15/19 06:43 Lymph # (Auto) 1.1 10^3/uL (1.5-3.5) L 08/15/19 06:43 [place] # (Auto) 1.0 10^3/uL (0.0-1.0) 08/15/19 06:43 Eos # (Auto) 0.1 10^3/uL (0.0-0.7) 08/15/19 06:43 Baso # (Auto) 0.1 10^3/uL (0.0-0.1) 08/15/19 06:43 Absolute Nucleated RBC 0.00 x10^3/uL 08/15/19 06:43 Total Counted 100 08/14/19 14:06 Band Neuts % (Manual) Not Reportable 08/15/19 06:43 Abnorm Lymph % (Manual) Not Reportable 08/15/19 06:43 Nucleated RBC % 0.0 /100WBC 08/15/19 06:43 Neutrophils # (Manual) Not Reportable 08/15/19 06:43 Lymphocytes # (Manual) Not Reportable 08/15/19 06:43 Monocytes # (Manual) Not Reportable 08/15/19 06:43 Eosinophils # (Manual) Not Reportable 08/15/19 06:43 Basophils # (Manual) Not Reportable 08/15/19 06:43 Differential Comment MANUAL=AUTO DIFF 08/15/19 06:43 Manual Slide Review Indicated 08/14/19 14:06 WBC Morphology 1+ DOHLE BODIES (NORMAL) 08/15/19 06:43 Platelet Estimate NORMAL (130-450,000) (NORMAL) 08/15/19 06:43 Platelet Morphology NORMAL APPEARANCE (NORMAL) 08/15/19 06:43 RBC Morph Micro Appear 2+ ANISOCYTOSIS (NORMAL) 1+ MICROCYTOSIS (NORMAL) 2+ HYPOCHROMASIA (NORMAL) 08/14/19 14:06 RBC Morph Micro Appear 2+ ANISOCYTOSIS (NORMAL) 1+ MICROCYTOSIS (NORMAL) 2+ HYPOCHROMASIA (NORMAL) 08/14/19 14:06 RBC Morph Micro Appear 2+ HYPOCHROMASIA (NORMAL) 2+ MICROCYTOSIS (NORMAL) 1+ ANISOCYTOSIS (NORMAL) 08/15/19 06:43 RBC Morph Micro Appear 2+ HYPOCHROMASIA (NORMAL) 2+ MICROCYTOSIS (NORMAL) 1+ ANISOCYTOSIS (NORMAL) 08/15/19 06:43 RBC Morph Micro Appear 2+ HYPOCHROMASIA (NORMAL) 2+ MICROCYTOSIS (NORMAL) 1+ ANISOCYTOSIS (NORMAL) 08/15/19 06:43 PT 15.4 secs (9.9-12.6) H 08/14/19 14:06 INR 1.4 (0.8-1.2) H 08/14/19 14:06 VBG pH 7.399 (7.31-7.41) 08/14/19 15:50 VBG pCO2 31.7 mmHg (41-51) L 08/14/19 15:50 VBG pO2 33.4 mmHg (25-47) 08/14/19 15:50 VBG HCO3 19.2 mmol/L (23-28) L 08/14/19 15:50 VBG Total CO2 20.1 mmol/L (24-29) L 08/14/19 15:50 VBG O2 Saturation 64.4 % (60-80) 08/14/19 15:50 VBG Base Excess -5.0 mmol/L (-2 - +2) L 08/14/19 15:50 Sodium 141 mmol/L (135-145) 08/15/19 06:43 Potassium 3.7 mmol/L (3.5-5.0) 08/15/19 06:43 Chloride 107 mmol/L (101-111) 08/15/19 06:43 Carbon Dioxide 23 mmol/L (21-32) 08/15/19 06:43 Anion Gap 11.0 (6-13) 08/15/19 06:43 BUN 47 mg/dL (6-20) H 08/15/19 06:43 Creatinine 2.4 mg/dL (0.6-1.2) H 08/15/19 06:43 Estimated GFR (MDRD) 26 (>89) L 08/15/19 06:43 Glucose 131 mg/dL (70-100) H 08/15/19 06:43 Lactic Acid 1.9 mmol/L (0.5-2.2) 08/15/19 01:06 Calcium 7.9 mg/dL (8.5-10.3) L 08/15/19 06:43 Magnesium 2.3 mg/dL (1.7-2.8) 08/15/19 06:43 Total Bilirubin 0.9 mg/dL (0.2-1.0) 08/14/19 14:06 AST 22 IU/L (10-42) 08/14/19 14:06 ALT 20 IU/L (10-60) 08/14/19 14:06 Alkaline Phosphatase 58 IU/L (42-121) 08/14/19 14:06 Total Protein 6.7 g/dL (6.7-8.2) 08/14/19 14:06 Albumin 3.5 g/dL (3.2-5.5) 08/14/19 14:06 Globulin 3.2 g/dL (2.1-4.2) 08/14/19 14:06 Albumin/Globulin Ratio 1.1 (1.0-2.2) 08/14/19 14:06 Lipase 34 U/L (22-51) 08/14/19 14:06 Urine Color YELLOW 08/15/19 06:30 Urine Clarity CLEAR (CLEAR) 08/15/19 06:30 Urine pH 5.5 PH (5.0-7.5) 08/15/19 06:30 Ur Specific [place] 1.010 (1.002-1.030) 08/15/19 06:30 Urine Protein NEGATIVE mg/dL (NEGATIVE) 08/15/19 06:30 Urine Glucose (UA) NEGATIVE mg/dL (NEGATIVE) 08/15/19 06:30 Urine Ketones NEGATIVE mg/dL (NEGATIVE) 08/15/19 06:30 Urine Occult Blood TRACE-LYSE (NEGATIVE) 08/15/19 06:30 Urine Nitrite NEGATIVE (NEGATIVE) 08/15/19 06:30 Urine Bilirubin NEGATIVE (NEGATIVE) 08/15/19 06:30 Urine Urobilinogen 0.2 (NORMAL) E.U./dL (NORMAL) 08/15/19 06:30 Ur Leukocyte Esterase NEGATIVE (NEGATIVE) 08/15/19 06:30 Ur Microscopic Review NOT INDICATED 08/15/19 06:30 Urine Culture Comments NOT INDICATED 08/15/19 06:30 Blood Type O POSITIVE 08/14/19 15:10 Blood Type Recheck O POSITIVE 08/14/19 14:06 Antibody Screen NEGATIVE 08/14/19 15:10 Crossmatch IS Only See Detail 08/14/19 15:10
[2019-08-15 16:14] LABS: HGB - HEMOGLOBIN 7.6 g/dL (14.0-18.0)
[2019-08-15] MEDS: VANCOMYCIN INJ 1 GM in SODIUM CHLORIDE 0.9% 250 ML IV SCH (17:36)
[2019-08-15] MEDS: guaiFENesin 600 MG TABLET PO SCH (20:25)
[2019-08-15] MEDS: SODIUM CHLORIDE FLUSH 0.9% 10 ML SYRINGE IVP PRN (20:25)
[2019-08-16] MEDS: SODIUM CHLORIDE 0.9% 1,000 ML IV SCH (04:29)
[2019-08-16] MEDS: SODIUM CHLORIDE FLUSH 0.9% 10 ML SYRINGE IVP SCH ×4 (04:31→23:50)
[2019-08-16] MEDS: PIPERACILLIN/TAZOBACTAM 3.375 GM in SODIUM CHLORIDE 0.9% MINIBAG 100 ML IV SCH ×2 (04:32→14:16)
[2019-08-16 05:50] LABS: BASOPHILS # (AUTO) 0.1 10^3/uL (0.0-0.1); BASOPHILS % (AUTO) 0.4 %; EOSINOPHILS # (AUTO) 0.2 10^3/uL (0.0-0.7); EOSINOPHILS % (AUTO) 1.2 %; LYMPHOCYTES # (AUTO) 0.8 10^3/uL (1.5-3.5); LYMPHOCYTES % (AUTO) 5.1 %; MEAN CORPUSCULAR HEMOGLOBIN 28.5 pg (27.0-31.0); MEAN CORPUSCULAR VOLUME 94.7 fL (80.0-94.0); MEAN PLATELET VOLUME 12.1 fL (7.4-11.4); MONOCYTES # (AUTO) 0.5 10^3/uL (0.0-1.0); MONOCYTES % (AUTO) 3.4 %; NEUTROPHILS # (AUTO) 13.8 10^3/uL (1.5-6.6); NEUTROPHILS % (AUTO) 88.2 %; PLT - PLATELET COUNT 146 10^3/uL (130-450); RED BLOOD COUNT 2.46 10^6/uL (4.70-6.10); RED CELL DISTRIBUTION WIDTH 16.8 % (12.0-15.0); WHITE BLOOD COUNT 15.6 x10^3/uL (4.8-10.8)
[2019-08-16 06:02] LABS: CALCIUM 7.3 mg/dL (8.5-10.3); CREATININE 1.8 mg/dL (0.6-1.2)
[2019-08-16] MEDS: carvediloL 12.5 MG TABLET PO SCH ×2 (09:27→16:19)
[2019-08-16] MEDS: guaiFENesin 600 MG TABLET PO SCH ×2 (09:27→20:43)
[2019-08-16] MEDS: FERROUS SULFATE 325 MG TABLET PO SCH (09:27)
[2019-08-16] MEDS: PANTOPRAZOLE 40 MG VIAL IVP SCH ×2 (09:27→20:43)
[2019-08-16] MEDS ORDERED: SODIUM CHLORIDE 0.9% 500 ML ONE (10:11)
--- NOTE | 2019-08-16 11:05 | PROVIDER PROGRESS NOTE ---
Assessment/Plan - Problem List (1) Dyspnea Qualifiers: Dyspnea type: orthopnea Qualified Code(s): R06.01 - Orthopnea Assessment/Plan: He developed increased SOB today, following the 1U PRBCs. He had received I U of blood at admission and was getting iv fluids, for MATTHEW and for hypernatremia. Fluids were stopped today. Lasix iv given, Morphine iv x1 given. The Echo was done today and showed markedly better LVEF of 55%, compared to his last one which was 35% several years ago. Will obtain a CXR before the planned EGD tomorrow. (2) Streptococcal bacteremia Assessment/Plan: Today is day #2 of treating the Strep bacteremia. Will change to po Augmentin following today's iv meds. (3) Community acquired pneumonia Assessment/Plan: He has no worse cough than his chronic cough according to the . Continue antibiotics and Mucinex for CAP. (4) Anemia Assessment/Plan: Hgb again down to 7, but his fluids were increased yesterday, therefore this is partly hemodilutional. Will order guiac of stool. Will transfuse 1U PRBCs Follow CBC daily. EGD is planned for tomorrow for W/U of the anemia (5) GI bleed Qualifiers: GI bleed type/associated pathology: melena Qualified Code(s): K92.1 - Melena Assessment/Plan: Heme test of stool was (+) at his provider's office EGD planned for tomorrow, and possibly colonoscopy (6) Acute kidney injury Assessment/Plan: He was admitted with new MATTHEW, which worsened on day 2, fluids were increased yesterday, and the creat has improved. He is more SOB today, after fluids plus blood transfusion today. He likely has a narrow zone of good fluid balance, as seen in cardio-renal syndrome. He is not on an ILIANA, since it is listed as an "allergy". Follow I's and O's and daily weights, and daily BUN/creat. (7) Hx of coronary artery disease Assessment/Plan: He was on ASA and Plavix, which were stopped art admission. His B-eneida and prn sl NTG were continued. (8) Pacemaker Assessment/Plan: This may be an AICD. - Current Meds Current Meds: Current Medications Generic Name Dose Route Start Last Admin Trade Name Freq PRN Reason Stop Dose Admin Carbidopa/Levodopa 1 tab 08/15/19 17:00 08/15/19 17:35 Sinemet 10 Mg/100 Mg PO 1 tab 1700 AVEL Administration Carvedilol 37.5 mg 08/14/19 21:00 08/16/19 09:27 Coreg PO 37.5 mg BIDWM AVEL Administration Ferrous Sulfate 325 mg 08/15/19 09:00 08/16/19 09:27 Feosol PO 325 mg DAILY AVEL Administration Guaifenesin 600 mg 08/15/19 21:00 08/16/19 09:27 Mucinex PO 600 mg BID AVEL Administration Piperacillin Sod/Tazobactam 100 mls @ 25 mls/hr 08/15/19 12:00 08/16/19 08:56 Sod 3.375 gm/ Sodium Chloride IV Infused Q8H AVEL Infusion Vancomycin HCl 1 gm/ Sodium 250 mls @ 167 mls/hr 08/15/19 17:00 08/15/19 19:06 Chloride IV Infused Q24H AVEL Infusion Sodium Chloride 1,000 mls @ 125 mls/hr 08/15/19 17:33 08/16/19 04:29 Normal Saline 0.9% IV 125 mls/hr .Q8H AVEL Administration Pantoprazole Sodium 40 mg 08/14/19 21:00 08/16/19 09:27 Protonix IVP 40 mg BID AVEL Administration Sodium Chloride 10 ml 08/14/19 16:26 08/15/19 20:25 Normal Saline Flush 0.9% IVP 10 ml PRN PRN Administration NEEDED PER PROVIDER ORDERS Sodium Chloride 10 ml 08/14/19 17:00 08/16/19 09:27 Normal Saline Flush 0.9% IVP 10 ml 0100,0900,1700 AVEL Administration - Lab Result Fish Bone Diagrams: 08/16/19 05:32 08/16/19 05:32 - Additional Planning My Orders: My Active Orders 08/15/19 14:15 CULTURE, BLOOD #1 [RM] Stat 08/15/19 17:00 Carbidopa/Levodopa 10/100 [Sinemet 10 mg/100 mg] 1 tab PO 1700 08/15/19 17:33 Sodium Chloride 0.9% [Normal Saline 0.9%] 1,000 ml IV 125 mls/hr 08/15/19 21:00 guaiFENesin [Mucinex] 600 mg PO BID 08/16/19 Guiaic [OCCULT BLOOD IN PAT. SINGLE] [RAPID] Urgent Subjective - Subjective Patient Reports: Shortness of Breath Nursing Reports: Other (Tachypneic this afternoon) Objective Vital Signs: Vital Signs - 24 hr 08/15/19 08/15/19 08/15/19 12:00 16:00 19:12 Temperature 36.8 C 36.8 C 36.8 C Heart Rate Heart Rate [ 70 70 70 Brachial] Respiratory 18 18 18 Rate Blood Pressure Blood Pressure 100/47 L 115/51 L 118/51 L [Left Brachial artery] O2 Saturation 92 92 93 08/16/19 08/16/19 08/16/19 00:05 05:20 06:00 Temperature 36.8 C 37.9 C H 37.5 C Heart Rate Heart Rate [ 71 70 Brachial] Respiratory 18 18 Rate Blood Pressure Blood Pressure 116/53 L 122/55 L [Left Brachial artery] O2 Saturation 93 92 08/16/19 08/16/19 08:04 10:26 Temperature 37.4 C 37.1 C Heart Rate 69 Heart Rate [ 80 Brachial] Respiratory 24 16 Rate Blood Pressure 128/51 L Blood Pressure 137/58 H [Left Brachial artery] O2 Saturation 90 L Oxygen O2 Source [With Activity] Room air O2 Source Nasal cannula I&O (Last 24 Hrs): Intake and Output Totals x24h 08/14/19 08/15/19 08/16/19 23:59 23:59 23:59 Intake Total 1857.5 3318.493 1250 Output Total 1005 525 Balance 1857.5 2313.493 725 General: Alert, Mild distress HEENT: Mucous membr. moist/pink Neck: Supple Neuro: Non Focal Cardiovascular: Regular rate, No murmurs Respiratory: Other (Scattered rhonchi, R base diminished, L base rales, scattered wheezes) Abdomen: Soft, No tenderness Extremities: No edema - Results Results: Laboratory Results WBC 15.6 x10^3/uL (4.8-10.8) H 08/16/19 05:32 RBC 2.46 10^6/uL (4.70-6.10) L 08/16/19 05:32 Hgb 7.0 g/dL (14.0-18.0) L* 08/16/19 05:32 Hct 23.3 % (42.0-52.0) L 08/16/19 05:32 MCV 94.7 fL (80.0-94.0) H 08/16/19 05:32 MCH 28.5 pg (27.0-31.0) 08/16/19 05:32 MCHC 30.0 g/dL (32.0-36.0) L 08/16/19 05:32 RDW 16.8 % (12.0-15.0) H 08/16/19 05:32 Plt Count 146 10^3/uL (130-450) 08/16/19 05:32 MPV 12.1 fL (7.4-11.4) H 08/16/19 05:32 Neut # (Auto) 13.8 10^3/uL (1.5-6.6) H 08/16/19 05:32 Lymph # (Auto) 0.8 10^3/uL (1.5-3.5) L 08/16/19 05:32 [place] # (Auto) 0.5 10^3/uL (0.0-1.0) 08/16/19 05:32 Eos # (Auto) 0.2 10^3/uL (0.0-0.7) 08/16/19 05:32 Baso # (Auto) 0.1 10^3/uL (0.0-0.1) 08/16/19 05:32 Absolute Nucleated RBC 0.00 x10^3/uL 08/16/19 05:32 Total Counted 100 08/14/19 14:06 Band Neuts % (Manual) Not Reportable 08/15/19 06:43 Abnorm Lymph % (Manual) Not Reportable 08/15/19 06:43 Nucleated RBC % 0.0 /100WBC 08/16/19 05:32 Neutrophils # (Manual) Not Reportable 08/15/19 06:43 Lymphocytes # (Manual) Not Reportable 08/15/19 06:43 Monocytes # (Manual) Not Reportable 08/15/19 06:43 Eosinophils # (Manual) Not Reportable 08/15/19 06:43 Basophils # (Manual) Not Reportable 08/15/19 06:43 Differential Comment MANUAL=AUTO DIFF 08/15/19 06:43 Manual Slide Review Indicated 08/14/19 14:06 WBC Morphology 1+ DOHLE BODIES (NORMAL) 08/15/19 06:43 Platelet Estimate NORMAL (130-450,000) (NORMAL) 08/15/19 06:43 Platelet Morphology NORMAL APPEARANCE (NORMAL) 08/15/19 06:43 RBC Morph Micro Appear 2+ ANISOCYTOSIS (NORMAL) 1+ MICROCYTOSIS (NORMAL) 2+ HYPOCHROMASIA (NORMAL) 08/14/19 14:06 RBC Morph Micro Appear 2+ ANISOCYTOSIS (NORMAL) 1+ MICROCYTOSIS (NORMAL) 2+ HYPOCHROMASIA (NORMAL) 08/14/19 14:06 RBC Morph Micro Appear 2+ HYPOCHROMASIA (NORMAL) 2+ MICROCYTOSIS (NORMAL) 1+ ANISOCYTOSIS (NORMAL) 08/15/19 06:43 RBC Morph Micro Appear 2+ HYPOCHROMASIA (NORMAL) 2+ MICROCYTOSIS (NORMAL) 1+ ANISOCYTOSIS (NORMAL) 08/15/19 06:43 RBC Morph Micro Appear 2+ HYPOCHROMASIA (NORMAL) 2+ MICROCYTOSIS (NORMAL) 1+ ANISOCYTOSIS (NORMAL) 08/15/19 06:43 PT 15.4 secs (9.9-12.6) H 08/14/19 14:06 INR 1.4 (0.8-1.2) H 08/14/19 14:06 VBG pH 7.399 (7.31-7.41) 08/14/19 15:50 VBG pCO2 31.7 mmHg (41-51) L 08/14/19 15:50 VBG pO2 33.4 mmHg (25-47) 08/14/19 15:50 VBG HCO3 19.2 mmol/L (23-28) L 08/14/19 15:50 VBG Total CO2 20.1 mmol/L (24-29) L 08/14/19 15:50 VBG O2 Saturation 64.4 % (60-80) 08/14/19 15:50 VBG Base Excess -5.0 mmol/L (-2 - +2) L 08/14/19 15:50 Sodium 142 mmol/L (135-145) 08/16/19 05:32 Potassium 3.5 mmol/L (3.5-5.0) 08/16/19 05:32 Chloride 113 mmol/L (101-111) H 08/16/19 05:32 Carbon Dioxide 21 mmol/L (21-32) 08/16/19 05:32 Anion Gap 8.0 (6-13) 08/16/19 05:32 BUN 36 mg/dL (6-20) H 08/16/19 05:32 Creatinine 1.8 mg/dL (0.6-1.2) H 08/16/19 05:32 Estimated GFR (MDRD) 36 (>89) L 08/16/19 05:32 Glucose 125 mg/dL (70-100) H 08/16/19 05:32 Lactic Acid 1.9 mmol/L (0.5-2.2) 08/15/19 01:06 Calcium 7.3 mg/dL (8.5-10.3) L 08/16/19 05:32 Magnesium 2.3 mg/dL (1.7-2.8) 08/15/19 06:43 Total Bilirubin 0.9 mg/dL (0.2-1.0) 08/14/19 14:06 AST 22 IU/L (10-42) 08/14/19 14:06 ALT 20 IU/L (10-60) 08/14/19 14:06 Alkaline Phosphatase 58 IU/L (42-121) 08/14/19 14:06 Total Protein 6.7 g/dL (6.7-8.2) 08/14/19 14:06 Albumin 3.5 g/dL (3.2-5.5) 08/14/19 14:06 Globulin 3.2 g/dL (2.1-4.2) 08/14/19 14:06 Albumin/Globulin Ratio 1.1 (1.0-2.2) 08/14/19 14:06 Lipase 34 U/L (22-51) 08/14/19 14:06 Urine Color YELLOW 08/15/19 06:30 Urine Clarity CLEAR (CLEAR) 08/15/19 06:30 Urine pH 5.5 PH (5.0-7.5) 08/15/19 06:30 Ur Specific [place] 1.010 (1.002-1.030) 08/15/19 06:30 Urine Protein NEGATIVE mg/dL (NEGATIVE) 08/15/19 06:30 Urine Glucose (UA) NEGATIVE mg/dL (NEGATIVE) 08/15/19 06:30 Urine Ketones NEGATIVE mg/dL (NEGATIVE) 08/15/19 06:30 Urine Occult Blood TRACE-LYSE (NEGATIVE) 08/15/19 06:30 Urine Nitrite NEGATIVE (NEGATIVE) 08/15/19 06:30 Urine Bilirubin NEGATIVE (NEGATIVE) 08/15/19 06:30 Urine Urobilinogen 0.2 (NORMAL) E.U./dL (NORMAL) 08/15/19 06:30 Ur Leukocyte Esterase NEGATIVE (NEGATIVE) 08/15/19 06:30 Ur Microscopic Review NOT INDICATED 08/15/19 06:30 Urine Culture Comments NOT INDICATED 08/15/19 06:30 Blood Type O POSITIVE 08/14/19 15:10 Blood Type Recheck O POSITIVE 08/14/19 14:06 Antibody Screen NEGATIVE 08/14/19 15:10 Crossmatch IS Only See Detail 08/14/19 15:10
[2019-08-16] MEDS ORDERED: FUROSEMIDE 20 MG/2 ML VIAL IVP SCH (14:02)
[2019-08-16] MEDS ORDERED: VANCOMYCIN INJ 1.5 GM in SODIUM CHLORIDE 0.9% 500 ML IV SCH (15:00)
[2019-08-16 16:09] LABS: VANCOMYCIN,TROUGH 12.3 ug/mL (10.0-20.0)
[2019-08-16] MEDS: CARBIDOPA/LEVODOPA 10 MG/100 MG TABLET PO SCH (16:19)
[2019-08-16] MEDS: VANCOMYCIN INJ 1 GM in SODIUM CHLORIDE 0.9% 250 ML IV SCH (17:06)
[2019-08-16] MEDS ORDERED: MORPHINE 2 MG/ML CARPUJECT IVP ONE (19:09)
[2019-08-16] MEDS: SODIUM CHLORIDE FLUSH 0.9% 10 ML SYRINGE IVP PRN ×2 (19:15→20:43)
[2019-08-16] MEDS: AMOX/CLAV 875 MG/125 MG TABLET PO SCH (20:43)
[2019-08-16] MEDS ORDERED: MORPHINE 2 MG/ML CARPUJECT IVP STA (23:07)
[2019-08-16] MEDS ORDERED: FUROSEMIDE 20 MG/2 ML VIAL IVP STA (23:07)
[2019-08-17 05:39] LABS: BASOPHILS # (AUTO) 0.1 10^3/uL (0.0-0.1); BASOPHILS % (AUTO) 0.4 %; EOSINOPHILS # (AUTO) 0.2 10^3/uL (0.0-0.7); HGB - HEMOGLOBIN 8.5 g/dL (14.0-18.0); LYMPHOCYTES # (AUTO) 0.6 10^3/uL (1.5-3.5); LYMPHOCYTES % (AUTO) 3.8 %; MEAN CORPUSCULAR HEMOGLOBIN 28.4 pg (27.0-31.0); MEAN CORPUSCULAR HGB CONC 30.9 g/dL (32.0-36.0); MONOCYTES # (AUTO) 0.8 10^3/uL (0.0-1.0); MONOCYTES % (AUTO) 4.5 %; NEUTROPHILS # (AUTO) 14.8 10^3/uL (1.5-6.6); NEUTROPHILS % (AUTO) 88.7 %; PLT - PLATELET COUNT 255 10^3/uL (130-450); RED BLOOD COUNT 2.99 10^6/uL (4.70-6.10); RED CELL DISTRIBUTION WIDTH 16.4 % (12.0-15.0); WHITE BLOOD COUNT 16.7 x10^3/uL (4.8-10.8)
[2019-08-17 05:51] LABS: CREATININE 1.4 mg/dL (0.6-1.2)
--- NOTE | 2019-08-17 06:52 | XRAY Report ---
Reason: SOB Procedure Date: 08/17/2019 Accession Number: [id number] / [id number] Procedure: XR - Chest 1 View X-Ray CPT Code: 36978 Final Report FULL RESULT: EXAM: CHEST RADIOGRAPHY EXAM DATE: 08/17/2019 06:42 AM. CLINICAL HISTORY: SOB. COMPARISON: CHEST 1 VIEW 08/14/2019 3:28 PM. TECHNIQUE: 1 view. FINDINGS: Lungs/Pleura: Similar appearance of the left retrocardiac opacity and mild interstitial and airspace opacities throughout both lungs. Small bilateral pleural fusions. No pneumothorax. Mediastinum: Stable mild cardiac enlargement Other: Left chest wall cardiac device with tips in the regions of the coronary vein and right ventricular apex. IMPRESSION: Pulmonary findings which may reflect mild pulmonary edema and left lower lobe atelectasis versus consolidation. RADIA
[2019-08-17] MEDS: PANTOPRAZOLE 40 MG VIAL IVP SCH (08:56)
[2019-08-17] MEDS: guaiFENesin 600 MG TABLET PO SCH ×2 (08:56→20:57)
[2019-08-17] MEDS: AMOX/CLAV 875 MG/125 MG TABLET PO SCH ×2 (08:56→20:57)
[2019-08-17] MEDS: carvediloL 12.5 MG TABLET PO SCH ×2 (08:56→18:01)
[2019-08-17] MEDS: SODIUM CHLORIDE FLUSH 0.9% 10 ML SYRINGE IVP SCH ×2 (08:56→18:02)
[2019-08-17] MEDS: FERROUS SULFATE 325 MG TABLET PO SCH (08:56)
--- NOTE | 2019-08-17 08:57 | CONSULTATION NOTE ---
Referring Provider Name of Referring Provider:: Jessica BETTS Consult Date: 08/16/19 Chief Complaint - Chief Complaint Chief Complaint: Upper GI Hemorrhage History of Present Illness - Admitted From Admitted From:: Emergency Department - History Obtained From Records Reviewed: Old Records, Provider notes History obtained from: Patient and records Exam Limitations: None - History of Present Illness HPI Comment/Other: Mr. Hernandez is a 83-year-old pleasant male with a history of recently GI bleed, pacemaker, CHF, CAD with a CABG in 2000, NM on 07/2014 with 3 stents placements, HTN, who presents ER complain of weakness.He report he has been progressively weaker. Pt report he was so weak today morning, he can not get out from bed. Pt report he has been noticing some very dark stools for around a few month, he only took his iron pill recently. He was admitted to the hospitalist service with pneumonia and WBC of > 30,000. Since admission, he has improved significantly. He reports that he feels "fine". He denies any pain or shortness of breath. His only complaint is back pain and he feels it is attributable to the bed. He specifically denies any abdominal pain. He had a colonoscopy some years ago but is uncertain of the date. History - Past Medical History Cardiovascular: reports: Congestive heart failure, Hypertension, High cholesterol, [place], Atrial fibrillation Respiratory: reports: Pneumonia Endocrine/Autoimmune: reports: None GI: reports: GERD, GI bleed : reports: None HEENT: reports: Chronic hearing loss Musculoskeletal: reports: None MRSA Hx?: No - Past Surgical History Ortho: reports: Rotator cuff repair, Other Cardiovascular: reports: CABG, Coronary stent, Vascular surgery HEENT: reports: Cataracts Derm: reports: Skin cancer surgery - Family & Social History Family History: Mother: , CVA/TIA, Father: , Cancer Family History Comment/Other: pt report his father from [facility], [facility] cancer, his mother from stroke. he has two health children. he is living at [facility] with his . Social History Notes: pt report he quit smoking 50 yrs, he has no issue on alcohol or drug. - POLST Patient has POLST: No POLST Status: DNR Meds/Allgy - Home Medications Home Medications: Ambulatory Orders Medication Instructions Recorded Confirmed Allopurinol 300 mg PO DAILY 10/24/14 08/14/19 Atorvastatin Calcium 40 mg PO QPM 10/24/14 08/14/19 Carbidopa/Levodopa [Carbidopa-Levo 1 tab PO QPM PRN 10/24/14 08/14/19 10-100 mg Odt] Carvedilol 37.5 mg PO BID 10/24/14 08/14/19 Furosemide [Lasix] 40 mg PO DAILY 10/24/14 08/14/19 Gabapentin 300 mg PO QPM 10/24/14 08/14/19 Losartan Potassium 50 mg PO BID 10/24/14 08/14/19 Famotidine 10 mg PO QPM 11/24/14 08/14/19 Amlodipine Besylate 5 mg PO QPM 08/14/19 08/14/19 Calcium Carbonate/Vitamin D3 1 tab PO BID 08/14/19 08/14/19 [Calcium 600 + Vit D 400 Tablet] Carbidopa/Levodopa 2 tab PO 1700 08/14/19 08/14/19 [Carbidopa-Levodopa 10-100 Tab] Cyanocobalamin [Vitamin B-12] 1,000 mcg IM Q28D 08/14/19 08/14/19 Ferrous Sulfate 325 mg PO DAILY 08/14/19 08/14/19 Pantoprazole Sodium 40 mg PO QDAC 08/14/19 08/14/19 - Allergies Allergies/Adverse Reactions: Allergies Allergy/AdvReac Type Severity Reaction Status Date / Time lisinopril AdvReac Unknown Verified 08/14/19 13:56 niacin AdvReac Unknown Verified 08/14/19 13:56 simvastatin [From Zocor] AdvReac Unknown Verified 08/14/19 13:56 Review of Systems - Constitutional Constitutional: reports: Fatigue. denies: Fever, Chills, Weakness - Eyes Eyes: denies: Pain, Blurred vision - Ears, Nose & Throat Ears, Nose & Throat: reports: Hearing loss. denies: Tinnitus, Vertigo - Cardiovascular Cariovascular: reports: Lightheadedness, Exertional dyspnea, Decr. exercise tolerance. denies: Syncope - Respiratory Respiratory: reports: Cough, Sputum production. denies: Wheezing, Hemoptysis, Orthopnea - Gastrointestinal Gastrointestinal: reports: Black stools. denies: Abdominal pain, Abdominal distention, Constipation, Diarrhea, Change in bowel habits, Bloody stools, Nausea, Vomiting - Genitourinary Genitourinary: denies: Dysuria, Frequency - Musculoskeletal Musculoskeletal: reports: Muscle pain, Back pain, Muscle aches, Stiffness - Integumentary Integumentary: denies: Rash, Pruritis - Neurological Neurological: denies: General weakness, Focal weakness - Hematologic/Lymphatic Hematologic/Lymphatic: reports: Anemia. denies: Blood clots Exam - Vital Signs Reviewed Vital Signs: Yes Vital Signs: Vital Signs x48h Temp Pulse Resp BP Pulse Ox 08/17/19 08:00 36.8 C 71 21 148/60 H 97 08/17/19 04:21 37.3 C 76 20 142/69 H 93 - Physical Exam General Appearance: positive: No acute distress, Alert Eyes Bilateral: positive: Normal inspection, PERRL, EOMI ENT: positive: ENT inspection nml, Pharynx nml, No signs of dehydration Neck: positive: Nml inspection, Thyroid nml, No JVD, Trachea midline, Thyromegaly Respiratory: positive: Chest non-tender, No respiratory distress, Rhonchi. negative: Wheezes, Rales Cardiovascular: positive: Regular rate & rhythm Peripheral Pulses: positive: 0 Abdomen: positive: Non-tender, No organomegaly, Nml bowel sounds, No distention Skin: positive: Color nml Neurologic/Psychiatric: positive: Oriented x3, CN's nml (2-12) Conclusion and Plan - Lab Results Microbiology Results 08/14/19 15:50 Blood Blood Culture - Final 08/14/19 15:45 Blood Blood Culture - Final Streptococcus Pneumoniae 08/16/19 15:43 Stool Occult Blood - Final Laboratory Results 08/17/19 05:25: B-Natriuretic Peptide 533 H 08/17/19 05:25: Sodium 143, Potassium 3.6, Chloride 113 H, Carbon Dioxide 20 L, Anion Gap 10.0, BUN 29 H, Creatinine 1.4 H, Estimated GFR (MDRD) 48 L, Glucose 130 H, Calcium 8.0 L 08/17/19 05:25: WBC 16.7 H, RBC 2.99 L, Hgb 8.5 L, Hct 27.5 L, MCV 92.0, MCH 2 8.4, MCHC 30.9 L, RDW 16.4 H, Plt Count 255, MPV 12.0 H, Neut # (Auto) 14.8 H, Lymph # (Auto) 0.6 L, Norton # (Auto) 0.8, Eos # (Auto) 0.2, Baso # (Auto) 0.1, Absolute Nucleated RBC 0.00, Nucleated RBC % 0.0 08/16/19 15:55: Last Dose Date 08-16-19, Last Dose Time 1706, Vancomycin Trough 12.3 08/16/19 05:32: Sodium 142, Potassium 3.5, Chloride 113 H, Carbon Dioxide 21, Anion Gap 8.0, BUN 36 H, Creatinine 1.8 H, Estimated GFR (MDRD) 36 L, Glucose 125 H, Calcium 7.3 L 08/16/19 05:32: WBC 15.6 H, RBC 2.46 L, Hgb 7.0 L*, Hct 23.3 L, MCV 94.7 H, MCH 28.5, MCHC 30.0 L, RDW 16.8 H, Plt Count 146, MPV 12.1 H, Neut # (Auto) 13.8 H, Lymph # (Auto) 0.8 L, Norton # (Auto) 0.5, Eos # (Auto) 0.2, Baso # (Auto) 0.1, Absolute Nucleated RBC 0.00, Nucleated RBC % 0.0 08/15/19 16:10: Hgb 7.6 L, Hct 24.9 L 08/15/19 10:00: Hgb 7.6 L, Hct 24.6 L 08/14/19 15:10: Blood Type O POSITIVE, Antibody Screen NEGATIVE, Crossmatch IS Only See Detail - Diagnosis Diagnosis: Gastrointestinal hemorrhage resulting in acute blood loss anemia. - Plan Plan: We have discussed the risks and benefits of EGD. I spoke with Dr. Lopez and she feel he will be an appropriate candidate for EGD on the . He is not hypoxic and his WBC count is down to 16. We will plan to proceed with EGD .
[2019-08-17] MEDS: FUROSEMIDE 20 MG/2 ML VIAL IVP SCH ×2 (08:59→14:34)
--- NOTE | 2019-08-17 13:26 | ANESTHESIA ---
Pre-Anesthesia VS, & Labs - Diagnosis Diagnosis Gastrointestinal hemorrhage resulting in acute blood loss anemia. - Procedure EGD Vital Signs: Temp Pulse Resp BP Pulse Ox 37.1 C 68 16 138/60 H 96 08/17/19 12:00 08/17/19 12:00 08/17/19 12:00 08/17/19 12:00 08/17/19 12:00 Height 5 ft 5 in Weight (kg) 74 kg Body Mass Index 27.1 - Lab Results Current Lab Results: Laboratory Tests 08/17/19 05:25: B-Natriuretic Peptide 533 H 08/17/19 05:25: Sodium 143, Potassium 3.6, Chloride 113 H, Carbon Dioxide 20 L, Anion Gap 10.0, BUN 29 H, Creatinine 1.4 H, Estimated GFR (MDRD) 48 L, Glucose 130 H, Calcium 8.0 L 08/17/19 05:25: WBC 16.7 H, RBC 2.99 L, Hgb 8.5 L, Hct 27.5 L, MCV 92.0, MCH 28.4, MCHC 30.9 L, RDW 16.4 H, Plt Count 255, MPV 12.0 H, Neut # (Auto) 14.8 H, Lymph # (Auto) 0.6 L, Cameron # (Auto) 0.8, Eos # (Auto) 0.2, Baso # (Auto) 0.1, Absolute Nucleated RBC 0.00, Nucleated RBC % 0.0 08/16/19 15:55: Last Dose Date 08-16-19, Last Dose Time 1706, Vancomycin Trough 12.3 08/16/19 05:32: Sodium 142, Potassium 3.5, Chloride 113 H, Carbon Dioxide 21, Anion Gap 8.0, BUN 36 H, Creatinine 1.8 H, Estimated GFR (MDRD) 36 L, Glucose 125 H, Calcium 7.3 L 08/16/19 05:32: WBC 15.6 H, RBC 2.46 L, Hgb 7.0 L*, Hct 23.3 L, MCV 94.7 H, MCH 28.5, MCHC 30.0 L, RDW 16.8 H, Plt Count 146, MPV 12.1 H, Neut # (Auto) 13.8 H, Lymph # (Auto) 0.8 L, Cameron # (Auto) 0.5, Eos # (Auto) 0.2, Baso # (Auto) 0.1, Absolute Nucleated RBC 0.00, Nucleated RBC % 0.0 08/15/19 16:10: Hgb 7.6 L, Hct 24.9 L 08/15/19 10:00: Hgb 7.6 L, Hct 24.6 L 08/15/19 06:43: Sodium 141, Potassium 3.7, Chloride 107, Carbon Dioxide 23, Anion Gap 11.0, BUN 47 H, Creatinine 2.4 H, Estimated GFR (MDRD) 26 L, Glucose 131 H, Calcium 7.9 L, Magnesium 2.3 08/15/19 06:43: WBC 28.3 H, RBC 2.76 L, Hgb 8.0 L, Hct 26.1 L, MCV 94.6 H, MCH 29.0, MCHC 30.7 L, RDW 17.0 H, Plt Count 188, MPV 12.3 H, Neut # (Auto) 25.2 H, Lymph # (Auto) 1.1 L, Cameron # (Auto) 1.0, Eos # (Auto) 0.1, Baso # (Auto) 0.1, Absolute Nucleated RBC 0.00, Band Neuts % (Manual) Not Reportable, Abnorm Lymph % (Manual) Not Reportable, Nucleated RBC % 0.0, Neutrophils # (Manual) Not Reportable, Lymphocytes # (Manual) Not Reportable, Monocytes # (Manual) Not Reportable, Eosinophils # (Manual) Not Reportable, Basophils # (Manual) Not Reportable, Differential Comment MANUAL=AUTO DIFF, WBC Morphology 1+ DOHLE BODIES, Platelet Estimate NORMAL (130-450,000), Platelet Morphology NORMAL APPEARANCE, RBC Morph Micro Appear 1+ ANISOCYTOSIS 08/15/19 01:06: WBC 29.6 H, RBC 2.52 L, Hgb 7.3 L, Hct 23.9 L, MCV 94.8 H, MCH 29.0, MCHC 30.5 L, RDW 16.6 H, Plt Count 182, MPV 12.6 H 08/15/19 01:06: Lactic Acid 1.9 08/14/19 15:50: VBG pH 7.399, VBG pCO2 31.7 L, VBG pO2 33.4, VBG HCO3 19.2 L, VBG Total CO2 20.1 L, VBG O2 Saturation 64.4, VBG Base Excess -5.0 L 08/14/19 15:50: Lactic Acid 3.2 H* 08/14/19 15:10: Blood Type O POSITIVE, Antibody Screen NEGATIVE, Crossmatch IS Only See Detail 08/14/19 14:06: Blood Type Recheck O POSITIVE 08/14/19 14:06: PT 15.4 H, INR 1.4 H 08/14/19 14:06: Sodium 139, Potassium 3.9, Chloride 105, Carbon Dioxide 20 L, Anion Gap 14.0 H, BUN 49 H, Creatinine 2.4 H, Estimated GFR (MDRD) 26 L, Glucose 201 H, Calcium 8.0 L, Total Bilirubin 0.9, AST 22, ALT 20, Alkaline Phosphatase 58, Total Protein 6.7, Albumin 3.5, Globulin 3.2, Albumin/Globulin Ratio 1.1, Lipase 34 08/14/19 14:06: WBC 36.3 H*, RBC 2.65 L, Hgb 7.6 L, Hct 25.3 L, MCV 95.5 H, MCH 28.7, MCHC 30.0 L, RDW 17.0 H, Plt Count 245, MPV 12.8 H, Neut # (Auto) Not Reportable, Lymph # (Auto) Not Reportable, Cameron # (Auto) Not Reportable, Eos # (Auto) Not Reportable, Baso # (Auto) Not Reportable, Absolute Nucleated RBC Not Reportable, Total Counted 100, Band Neuts % (Manual) 5, Abnorm Lymph % (Manual) 0, Nucleated RBC % Not Reportable, Neutrophils # (Manual) 34.5 H, Lymphocytes # (Manual) 0.4 L, Monocytes # (Manual) 1.1 H, Eosinophils # (Manual) 0.4, Basophils # (Manual) 0.0, Differential Comment MANUAL DIFFERENTIAL, Manual Slide Review Indicated, Platelet Estimate NORMAL (130-450,000), Platelet Morphology NORMAL APPEARANCE, RBC Morph Micro Appear 2+ HYPOCHROMASIA Fish Bones: 08/17/19 05:25 08/17/19 05:25 Home Medications and Allergies Home Medications: Ambulatory Orders Amlodipine Besylate 5 mg PO QPM 08/14/19 Calcium Carbonate/Vitamin D3 [Calcium 600 + Vit D 400 Tablet] 1 tab PO BID 08/14/19 Carbidopa/Levodopa [Carbidopa-Levodopa 10-100 Tab] 2 tab PO 1700 08/14/19 Cyanocobalamin [Vitamin B-12] 1,000 mcg IM Q28D 08/14/19 Ferrous Sulfate 325 mg PO DAILY 08/14/19 Pantoprazole Sodium 40 mg PO QDAC 08/14/19 Active Medications Acetaminophen (Tylenol) 650 mg PO Q4HR PRN PRN Reason: Pain 1 to 4 Amoxicillin/Clavulanate Potassium (Augmentin 875/125) 1 tab PO BID [facility] Last Admin: 08/17/19 08:56 Dose: 1 tab Carbidopa/Levodopa (Sinemet 10 Mg/100 Mg) 1 tab PO 1700 [facility] Last Admin: 08/16/19 16:19 Dose: 1 tab Carvedilol (Coreg) 37.5 mg PO BIDWM [facility] Last Admin: 08/17/19 08:56 Dose: 37.5 mg Ferrous Sulfate (Feosol) 325 mg PO DAILY [facility] Last Admin: 08/17/19 08:56 Dose: 325 mg Furosemide (Lasix Inj 20mg Vial) 20 mg IVP BIDDIURETIC [facility] Last Admin: 08/17/19 08:59 Dose: 20 mg Guaifenesin (Mucinex) 600 mg PO BID [facility] Last Admin: 08/17/19 08:56 Dose: 600 mg Nitroglycerin (Nitrostat) 0.4 mg SL Q5MIN PRN PRN Reason: Chest Pain Ondansetron HCl (Zofran Inj) 4 mg IVP Q6HR PRN PRN Reason: Nausea / Vomiting Pantoprazole Sodium (Protonix) 40 mg IVP BID [facility] Last Admin: 08/17/19 08:56 Dose: 40 mg Sodium Chloride (Normal Saline Flush 0.9%) 10 ml IVP PRN PRN PRN Reason: NEEDED PER PROVIDER ORDERS Last Admin: 08/16/19 20:43 Dose: 10 ml Sodium Chloride (Normal Saline Flush 0.9%) 10 ml IVP 0100,0900,1700 [facility] Last Admin: 08/17/19 08:56 Dose: 10 ml Allopurinol 300 mg PO DAILY 10/24/14 Atorvastatin Calcium 40 mg PO QPM 10/24/14 Carbidopa/Levodopa [Carbidopa-Levo 10-100 mg Odt] 1 tab PO QPM PRN 10/24/14 Carvedilol 37.5 mg PO BID 10/24/14 Furosemide [Lasix] 40 mg PO DAILY 10/24/14 Gabapentin 300 mg PO QPM 10/24/14 Losartan Potassium 50 mg PO BID 10/24/14 Famotidine 10 mg PO QPM 11/24/14 Amlodipine Besylate 5 mg PO QPM 08/14/19 Calcium Carbonate/Vitamin D3 [Calcium 600 + Vit D 400 Tablet] 1 tab PO BID 08/14/19 Carbidopa/Levodopa [Carbidopa-Levodopa 10-100 Tab] 2 tab PO 1700 08/14/19 Cyanocobalamin [Vitamin B-12] 1,000 mcg IM Q28D 08/14/19 Ferrous Sulfate 325 mg PO DAILY 08/14/19 Pantoprazole Sodium 40 mg PO QDAC 08/14/19 Allergies/Adverse Reactions: Allergies Allergy/AdvReac Type Severity Reaction Status Date / Time lisinopril AdvReac Unknown Verified 08/14/19 13:56 niacin AdvReac Unknown Verified 08/14/19 13:56 simvastatin [From Zocor] AdvReac Unknown Verified 08/14/19 13:56 Anes History & Medical History - Anesthetic History Anesthesia Complications: reports: No previous complications Family history of Anesthesia Complications: Denies Family history of Malignant Hyperthermia: Denies - Medical History Cardiovascular: reports: Congestive heart failure, Hypertension, High cholesterol, [place], Atrial fibrillation Pulmonary: reports: Pneumonia Gastrointestinal: reports: GERD, GI bleed Urinary: reports: None Neuro: reports: 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) Musculoskeletal: reports: None Endocrine/Autoimmune: reports: None Blood Disorders: reports: None, Anemia Skin: reports: None Smoking Status: Never smoker Psychosocial: reports: No issues indicated - Surgical History Eyes Ears Nose Throat (EENT): Cataracts Cardiothoracic: CABG, Coronary stent, Vascular surgery Orthopedic: Rotator cuff repair, Other Dermatologic: Skin cancer surgery Exam General: Alert, Oriented x3, Cooperative, No acute distress Dental: Loose/Frag Mouth Openin Fingerbreadth Neck Mobility: Normal Mallampati classification: II Thyromental Distance: 4-6 cm Respiratory: Decreased breath sounds, Crackles Cardiovascular: Other (irregular rhythm) Abdomen: Normal bowel sounds, Soft, No tenderness, No hepatospenomegaly, No masses Extremities: No clubbing, No edema Neurological: Normal gait (mild left sided weakness, denies using a walker at home, but reports using a awlaker here in the hospital) Plan Anesthesia Type: MAC Consent for Procedure(s) Verified and Reviewed: Yes Code Status: Attempt Resuscitation ASA classification: 3-Severe systemic disease Is this case an emergency?: Yes
--- NOTE | 2019-08-17 14:17 | PROVIDER PROGRESS NOTE ---
Subjective - Prog Note Date Prog Note Date: 08/17/19 - Subjective Subjective: He reports feeling well and that his dyspnea has improved especially when he is sitting upright in a chair. He continues to have a nonproductive cough. He reports no fevers or chills. He is hungry this morning. Current Medications - Current Medications Current Medications: Active Medications Acetaminophen (Tylenol) 650 mg PO Q4HR PRN PRN Reason: Pain 1 to 4 Amoxicillin/Clavulanate Potassium (Augmentin 875/125) 1 tab PO BID [facility] Last Admin: 08/17/19 08:56 Dose: 1 tab Carbidopa/Levodopa (Sinemet 10 Mg/100 Mg) 1 tab PO 1700 [facility] Last Admin: 08/16/19 16:19 Dose: 1 tab Carvedilol (Coreg) 37.5 mg PO BIDWM [facility] Last Admin: 08/17/19 08:56 Dose: 37.5 mg Ferrous Sulfate (Feosol) 325 mg PO DAILY [facility] Last Admin: 08/17/19 08:56 Dose: 325 mg Furosemide (Lasix Inj 20mg Vial) 20 mg IVP BIDDIURETIC [facility] Last Admin: 08/17/19 08:59 Dose: 20 mg Guaifenesin (Mucinex) 600 mg PO BID [facility] Last Admin: 08/17/19 08:56 Dose: 600 mg Nitroglycerin (Nitrostat) 0.4 mg SL Q5MIN PRN PRN Reason: Chest Pain Ondansetron HCl (Zofran Inj) 4 mg IVP Q6HR PRN PRN Reason: Nausea / Vomiting Pantoprazole Sodium (Protonix) 40 mg IVP BID [facility] Last Admin: 08/17/19 08:56 Dose: 40 mg Sodium Chloride (Normal Saline Flush 0.9%) 10 ml IVP PRN PRN PRN Reason: NEEDED PER PROVIDER ORDERS Last Admin: 08/16/19 20:43 Dose: 10 ml Sodium Chloride (Normal Saline Flush 0.9%) 10 ml IVP 0100,0900,1700 [facility] Last Admin: 08/17/19 08:56 Dose: 10 ml Allopurinol 300 mg PO DAILY 10/24/14 Atorvastatin Calcium 40 mg PO QPM 10/24/14 Carbidopa/Levodopa [Carbidopa-Levo 10-100 mg Odt] 1 tab PO QPM PRN 10/24/14 Carvedilol 37.5 mg PO BID 10/24/14 Furosemide [Lasix] 40 mg PO DAILY 10/24/14 Gabapentin 300 mg PO QPM 10/24/14 Losartan Potassium 50 mg PO BID 10/24/14 Famotidine 10 mg PO QPM 11/24/14 Amlodipine Besylate 5 mg PO QPM 08/14/19 Calcium Carbonate/Vitamin D3 [Calcium 600 + Vit D 400 Tablet] 1 tab PO BID 08/14/19 Carbidopa/Levodopa [Carbidopa-Levodopa 10-100 Tab] 2 tab PO 1700 08/14/19 Cyanocobalamin [Vitamin B-12] 1,000 mcg IM Q28D 08/14/19 Ferrous Sulfate 325 mg PO DAILY 08/14/19 Pantoprazole Sodium 40 mg PO QDAC 08/14/19 Objective - Vital Signs/Intake & Output Reviewed Vital Signs: Yes Vital Signs: Vital Signs x48h Temp Pulse Resp BP Pulse Ox 08/17/19 12:00 37.1 C 68 16 138/60 H 96 08/17/19 08:00 36.8 C 71 21 148/60 H 97 Intake & Output: Intake & Output 08/14/19 08/15/19 08/16/19 08/17/19 23:59 23:59 23:59 23:59 Intake Total 1857.5 3318.493 3953.333 Output Total 4957 556 8316 Balance 1857.5 2313.493 3428.333 -1850 - Objective General Appearance: positive: No acute distress, Alert Eyes Bilateral: positive: Normal inspection ENT: positive: ENT inspection nml, Other (Nasal cannula in place) Neck: positive: Nml inspection Respiratory: positive: No respiratory distress, Rales, Rhonchi Cardiovascular: positive: Regular rate & rhythm, No murmur. negative: T achycardia, Bradycardia, Systolic murmur, Diastolic murmur Abdomen: positive: Non-tender, No distention. negative: Tenderness Skin: positive: No rash, Warm, Dry Extremities: positive: Full ROM, Pedal edema (Trace in lower extremities) Neurologic/Psychiatric: positive: Other (No focal motor deficits.). negative: Disoriented to person, Disoriented to place, Disoriented to time - Lab Results Fish Bones: 08/17/19 05:25 08/17/19 05:25 Other Labs: Lab Results x24hrs 08/17/19 08/17/19 08/17/19 Range/Units 05:25 05:25 05:25 WBC 16.7 H (4.8-10.8) x10^3/uL RBC 2.99 L (4.70-6.10) 10^6/uL Hgb 8.5 L (14.0-18.0) g/dL Hct 27.5 L (42.0-52.0) % MCV 92.0 (80.0-94.0) fL MCH 28.4 (27.0-31.0) pg MCHC 30.9 L (32.0-36.0) g/dL RDW 16.4 H (12.0-15.0) % Plt Count 255 (130-450) 10^3/uL MPV 12.0 H (7.4-11.4) fL Neut # (Auto) 14.8 H (1.5-6.6) 10^3/uL Lymph # (Auto) 0.6 L (1.5-3.5) 10^3/uL [place] # (Auto) 0.8 (0.0-1.0) 10^3/uL Eos # (Auto) 0.2 (0.0-0.7) 10^3/uL Baso # (Auto) 0.1 (0.0-0.1) 10^3/uL Absolute Nucleated RBC 0.00 x10^3/uL Nucleated RBC % 0.0 /100WBC Sodium 143 (135-145) mmol/L Potassium 3.6 (3.5-5.0) mmol/L Chloride 113 H (101-111) mmol/L Carbon Dioxide 20 L (21-32) mmol/L Anion Gap 10.0 (6-13) BUN 29 H (6-20) mg/dL Creatinine 1.4 H (0.6-1.2) mg/dL Estimated GFR (MDRD) 48 L (>89) Glucose 130 H (70-100) mg/dL Calcium 8.0 L (8.5-10.3) mg/dL B-Natriuretic Peptide 533 H (5-100) pg/mL Last Dose Date Last Dose Time Vancomycin Trough (10.0-20.0) ug/mL Blood Type Antibody Screen Crossmatch IS Only 08/16/19 08/14/19 Range/Units 15:55 15:10 WBC (4.8-10.8) x10^3/uL RBC (4.70-6.10) 10^6/uL Hgb (14.0-18.0) g/dL Hct (42.0-52.0) % MCV (80.0-94.0) fL MCH (27.0-31.0) pg MCHC (32.0-36.0) g/dL RDW (12.0-15.0) % Plt Count (130-450) 10^3/uL MPV (7.4-11.4) fL Neut # (Auto) (1.5-6.6) 10^3/uL Lymph # (Auto) (1.5-3.5) 10^3/uL [place] # (Auto) (0.0-1.0) 10^3/uL Eos # (Auto) (0.0-0.7) 10^3/uL Baso # (Auto) (0.0-0.1) 10^3/uL Absolute Nucleated RBC x10^3/uL Nucleated RBC % /100WBC Sodium (135-145) mmol/L Potassium (3.5-5.0) mmol/L Chloride (101-111) mmol/L Carbon Dioxide (21-32) mmol/L Anion Gap (6-13) BUN (6-20) mg/dL Creatinine (0.6-1.2) mg/dL Estimated GFR (MDRD) (>89) Glucose (70-100) mg/dL Calcium (8.5-10.3) mg/dL B-Natriuretic Peptide (5-100) pg/mL Last Dose Date 08-16-19 Last Dose Time 1706 Vancomycin Trough 12.3 (10.0-20.0) ug/mL Blood Type O POSITIVE Antibody Screen NEGATIVE Crossmatch IS Only See Detail ABX Reporting Has patient been on IV antibiotics over the past 48 hours?: No Sepsis Event Note (H) - Evaluation Current Stage of Sepsis: Resolved Possible source of Sepsis: positive: Pulmonary - Sepsis Criteria Sepsis Criteria: Respiratory: Increasing oxygen requirements, WBC count greater than 12,000 or less than 4000, Renal: urine output less than 0.5ml/kg/hr for 2 hours or creatinine gr, Metabolic: lactate > 2 mmol/L Assessment/Plan - Problem List (1) Acute respiratory failure with hypoxia Impression: He was hypoxic yesterday evening and required 4 L of oxygen and oxygen saturation of 92%. Chest x-ray was still concerning for pneumonia but there is also concern for pulmonary vascular congestion. He was given IV diuresis with improvement. Will start IV diuresis with Lasix 20 mg IV twice a day. Continue antibiotics to treat his pneumonia. We will continue supplemental oxygen as needed to maintain a goal saturation greater than 92%. (2) Community acquired pneumonia Impression: Was evident on admission and cultures grew Streptococcus pneumonia. The p neumonia is in the left lower lobe. This was comp gated by bacteremia. We will continue oral Augmentin to complete 2 weeks of treatment. (3) Streptococcal bacteremia Impression: Blood cultures have been negative. We will continue Augmentin orally to comple te 2 weeks of treatment.Today is day 3 of antibiotics. (4) Anemia due to blood loss, chronic Impression: His hemoglobin responded appropriately to 1 unit of packed red blood cells. His stool was occult positive. He is n.p.o. for an EGD today. Continue to monitor his hemoglobin and transfuse for goal hemoglobin greater than 8 given his history of coronary artery disease. Monitor for signs of bleeding. (5) Chronic systolic heart failure Impression: The echocardiogram showed his ejection fraction has improved to greater than 50% compared to 35%. X-ray is concerning for possible pulmonary vascular congestion although he does not appear overtly hypervolemic. Will diuresis him with IV Lasix at this time given his hypoxia. Check BNP in AM. (6) GI bleed Impression: Suspect the cause of his anemia given his was occult positive. He is n.p.o. for EGD today. Appreciate general surgery recommendations. Continue to hold his home aspirin and Plavix at this time. Qualifiers: GI bleed type/associated pathology: melena Qualified Code(s): K92.1 - Melena (7) Acute kidney injury Impression: He presented with a creatinine of 1.7 which actually increased to 2.4 but has since been improving and is now down to 1.4. This may have initially been a prerenal picture given his sepsis. We will monitor his renal function while he is being diuresed with IV Lasix. Continue to monitor his urine output. Hold home Losartan. (8) Hx of coronary artery disease Impression: He is on aspirin and Plavix at home. We will continue to hold these in the setting of GI bleed and anemia. We will continue his home beta-eneida and atorvastatin.
[2019-08-17] MEDS ORDERED: MIDAZOLAM 2 MG/2 ML VIAL IVP ONE (15:03)
[2019-08-17] MEDS ORDERED: NEOSTIGMINE 1 MG/1 ML 10 ML MDV IVP ONE (15:03)
[2019-08-17] MEDS ORDERED: PROPOFOL 200 MG/20 ML VIAL IVP ONE (15:03)
[2019-08-17] MEDS ORDERED: ETOMIDATE 40 MG/20 ML VIAL IVP ONE (15:03)
[2019-08-17] MEDS: LIDO GARGLE 30 ML BOTTLE ONE ×2 (15:57→16:30)
[2019-08-17] MEDS ORDERED: LACTATED RINGERS 1,000 ML IV ONE (16:20)
[2019-08-17] MEDS: CARBIDOPA/LEVODOPA 10 MG/100 MG TABLET PO SCH (18:01)
[2019-08-17] MEDS: ATORVASTATIN 40 MG TABLET PO SCH (20:57)
[2019-08-17] MEDS: PANTOPRAZOLE 40 MG TABLET PO SCH (20:57)
[2019-08-17] MEDS: GABAPENTIN 300 MG CAPSULE PO SCH (20:57)
[2019-08-18] MEDS: SODIUM CHLORIDE FLUSH 0.9% 10 ML SYRINGE IVP SCH ×3 (00:46→16:53)
[2019-08-18] MEDS: FUROSEMIDE 20 MG/2 ML VIAL IVP SCH (05:11)
[2019-08-18] MEDS: ACETAMINOPHEN 325 MG TABLET PO PRN ×2 (05:11→08:58)
[2019-08-18 05:27] LABS: BASOPHILS # (AUTO) 0.1 10^3/uL (0.0-0.1); BASOPHILS % (AUTO) 0.5 %; EOSINOPHILS # (AUTO) 0.2 10^3/uL (0.0-0.7); EOSINOPHILS % (AUTO) 1.4 %; HGB - HEMOGLOBIN 7.8 g/dL (14.0-18.0); LYMPHOCYTES # (AUTO) 0.7 10^3/uL (1.5-3.5); LYMPHOCYTES % (AUTO) 5.8 %; MEAN CORPUSCULAR HEMOGLOBIN 28.8 pg (27.0-31.0); MEAN CORPUSCULAR HGB CONC 30.7 g/dL (32.0-36.0); MEAN CORPUSCULAR VOLUME 93.7 fL (80.0-94.0); MEAN PLATELET VOLUME 11.2 fL (7.4-11.4); MONOCYTES # (AUTO) 0.7 10^3/uL (0.0-1.0); MONOCYTES % (AUTO) 5.9 %; NEUTROPHILS # (AUTO) 10.4 10^3/uL (1.5-6.6); NEUTROPHILS % (AUTO) 83.7 %; PLT - PLATELET COUNT 226 10^3/uL (130-450); RED BLOOD COUNT 2.71 10^6/uL (4.70-6.10); RED CELL DISTRIBUTION WIDTH 16.4 % (12.0-15.0); WHITE BLOOD COUNT 12.5 x10^3/uL (4.8-10.8)
[2019-08-18 05:34] LABS: CREATININE 1.3 mg/dL (0.6-1.2)
[2019-08-18] MEDS ORDERED: POTASSIUM CHLORIDE 20 MEQ TABLET PO ONE (07:27)
[2019-08-18] MEDS: AMOX/CLAV 875 MG/125 MG TABLET PO SCH ×2 (08:57→20:57)
[2019-08-18] MEDS: FERROUS SULFATE 325 MG TABLET PO SCH (08:58)
[2019-08-18] MEDS: PANTOPRAZOLE 40 MG TABLET PO SCH ×2 (09:02→20:56)
[2019-08-18] MEDS: ALLOPURINOL 100 MG TABLET PO SCH (09:02)
[2019-08-18] MEDS: guaiFENesin 600 MG TABLET PO SCH ×2 (09:03→20:57)
[2019-08-18] MEDS: CLOPIDOGREL 75 MG TABLET PO SCH (09:03)
[2019-08-18] MEDS: carvediloL 12.5 MG TABLET PO SCH ×2 (09:03→16:53)
[2019-08-18] MEDS: ASPIRIN EC 81 MG TABLET PO SCH (09:03)
[2019-08-18] MEDS: amLODIPine 5 MG TABLET PO SCH (10:48)
--- NOTE | 2019-08-18 10:50 | PROVIDER PROGRESS NOTE ---
Subjective - Prog Note Date Prog Note Date: 08/18/19 - Subjective Subjective: He underwent an EGD yesterday which showed multiple erosions in the lesser curvature of the stomach. He was started on a diet postprocedure and has been tolerating it well. He reports feeling well this morning although he did have a rough night. Continues to feel short of breath but this is improving. He was borderline febrile overnight. Continues to have nonproductive cough. Denies chest pain. Current Medications - Current Medications Current Medications: Active Medications Acetaminophen (Tylenol) 650 mg PO Q4HR PRN PRN Reason: Pain 1 to 4 Last Admin: 08/18/19 08:58 Dose: 650 mg Allopurinol (Zyloprim) 300 mg PO DAILY [facility] Last Admin: 08/18/19 09:02 Dose: 300 mg Amlodipine Besylate (Norvasc) 5 mg PO DAILY [facility] Last Admin: 08/18/19 10:48 Dose: 5 mg Amoxicillin/Clavulanate Potassium (Augmentin 875/125) 1 tab PO BID [facility] Last Admin: 08/18/19 08:57 Dose: 1 tab Aspirin (Ecotrin) 81 mg PO DAILY [facility] Last Admin: 08/18/19 09:03 Dose: 81 mg Atorvastatin Calcium (Lipitor) 40 mg PO QPM [facility] Last Admin: 08/17/19 20:57 Dose: 40 mg Carbidopa/Levodopa (Sinemet 10 Mg/100 Mg) 1 tab PO 1700 [facility] Last Admin: 08/17/19 18:01 Dose: 1 tab Carvedilol (Coreg) 37.5 mg PO BIDWM [facility] Last Admin: 08/18/19 09:03 Dose: 37.5 mg Clopidogrel Bisulfate (Plavix) 75 mg PO DAILY [facility] Last Admin: 08/18/19 09:03 Dose: 75 mg Ferrous Sulfate (Feosol) 325 mg PO DAILY [facility] Last Admin: 08/18/19 08:58 Dose: 325 mg Furosemide (Lasix Inj 20mg Vial) 40 mg IVP BIDDIURETIC [facility] Gabapentin (Neurontin) 300 mg PO QPM [facility] Last Admin: 08/17/19 20:57 Dose: 300 mg Guaifenesin (Mucinex) 600 mg PO BID [facility] Last Admin: 08/18/19 09:03 Dose: 600 mg Nitroglycerin (Nitrostat) 0.4 mg SL Q5MIN PRN PRN Reason: Chest Pain Ondansetron HCl (Zofran Inj) 4 mg IVP Q6HR PRN PRN Reason: Nausea / Vomiting Pantoprazole Sodium (Protonix) 40 mg PO BID [facility] Last Admin: 08/18/19 09:02 Dose: 40 mg Sodium Chloride (Normal Saline Flush 0.9%) 10 ml IVP PRN PRN PRN Reason: NEEDED PER PROVIDER ORDERS Last Admin: 08/16/19 20:43 Dose: 10 ml Sodium Chloride (Normal Saline Flush 0.9%) 10 ml IVP 0100,0900,1700 [facility] Last Admin: 08/18/19 09:04 Dose: 10 ml Allopurinol 300 mg PO DAILY 10/24/14 Atorvastatin Calcium 40 mg PO QPM 10/24/14 Carbidopa/Levodopa [Carbidopa-Levo 10-100 mg Odt] 1 tab PO QPM PRN 10/24/14 Carvedilol 37.5 mg PO BID 10/24/14 Furosemide [Lasix] 40 mg PO DAILY 10/24/14 Gabapentin 300 mg PO QPM 10/24/14 Losartan Potassium 50 mg PO BID 10/24/14 Famotidine 10 mg PO QPM 11/24/14 Amlodipine Besylate 5 mg PO QPM 08/14/19 Calcium Carbonate/Vitamin D3 [Calcium 600 + Vit D 400 Tablet] 1 tab PO BID 08/14/19 Carbidopa/Levodopa [Carbidopa-Levodopa 10-100 Tab] 2 tab PO 1700 08/14/19 Cyanocobalamin [Vitamin B-12] 1,000 mcg IM Q28D 08/14/19 Ferrous Sulfate 325 mg PO DAILY 08/14/19 Pantoprazole Sodium 40 mg PO QDAC 08/14/19 Objective - Vital Signs/Intake & Output Reviewed Vital Signs: Yes Vital Signs: Vital Signs x48h Temp Pulse Resp BP Pulse Ox 08/18/19 07:40 37.0 C 75 18 120/67 93 08/18/19 06:30 37.7 C H 08/18/19 04:57 37.9 C H 86 18 138/58 H 88 L Intake & Output: Intake & Output 08/15/19 08/16/19 08/17/19 08/18/19 23:59 23:59 23:59 23:59 Intake Total 3318.493 3953.333 470 980 Output Total 8826 386 5747 700 Balance 2313.493 6217.333 -2663 280 - Objective General Appearance: positive: No acute distress, Alert Eyes Bilateral: positive: Normal inspection ENT: positive: ENT inspection nml, Other (Nasal cannula in place) Neck: positive: Nml inspection Respiratory: positive: No respiratory distress, Other (Diminished breath sounds) Cardiovascular: positive: Regular rate & rhythm. negative: Tachycardia, Bradycardia Abdomen: positive: Non-tender, No distention. negative: Tenderness Skin: positive: No rash, Warm, Dry Extremities: positive: Full ROM, No pedal edema Neurologic/Psychiatric: positive: Oriented x3. negative: Disoriented to person, Disoriented to place, Disoriented to time - Lab Results Fish Bones: 08/18/19 14:20 08/18/19 05:00 Other Labs: Lab Results x24hrs 08/18/19 08/18/19 08/14/19 Range/Units 05:00 05:00 15:10 WBC 12.5 H (4.8-10.8) x10^3/uL RBC 2.71 L (4.70-6.10) 10^6/uL Hgb 7.8 L (14.0-18.0) g/dL Hct 25.4 L (42.0-52.0) % MCV 93.7 (80.0-94.0) fL MCH 28.8 (27.0-31.0) pg MCHC 30.7 L (32.0-36.0) g/dL RDW 16.4 H (12.0-15.0) % Plt Count 226 (130-450) 10^3/uL MPV 11.2 (7.4-11.4) fL Neut # (Auto) 10.4 H (1.5-6.6) 10^3/uL Lymph # (Auto) 0.7 L (1.5-3.5) 10^3/uL [place] # (Auto) 0.7 (0.0-1.0) 10^3/uL Eos # (Auto) 0.2 (0.0-0.7) 10^3/uL Baso # (Auto) 0.1 (0.0-0.1) 10^3/uL Absolute Nucleated RBC 0.00 x10^3/uL Nucleated RBC % 0.0 /100WBC Sodium 144 (135-145) mmol/L Potassium 3.4 L (3.5-5.0) mmol/L Chloride 113 H (101-111) mmol/L Carbon Dioxide 21 (21-32) mmol/L Anion Gap 10.0 (6-13) BUN 24 H (6-20) mg/dL Creatinine 1.3 H (0.6-1.2) mg/dL Estimated GFR (MDRD) 53 L (>89) Glucose 127 H (70-100) mg/dL Calcium 8.0 L (8.5-10.3) mg/dL Blood Type O POSITIVE Antibody Screen NEGATIVE Crossmatch IS Only See Detail - Diagnostic Imaging Diagnostic Imaging Results: positive: Final report reviewed ABX Reporting Has patient been on IV antibiotics over the past 48 hours?: No Sepsis Event Note (H) - Evaluation Current Stage of Sepsis: Resolved Possible source of Sepsis: positive: Pulmonary - Sepsis Criteria Sepsis Criteria: Respiratory: Increasing oxygen requirements, WBC count greater than 12,000 or less than 4000, Renal: urine output less than 0.5ml/kg/hr for 2 hours or creatinine gr, Metabolic: lactate > 2 mmol/L Assessment/Plan - Problem List (1) Acute respiratory failure with hypoxia Impression: He was down to half a liter of oxygen yesterday but is now requiring 3 L of oxygen. It appears secondary to his pneumonia as well as pulmonary vascular congestion. We will continue with oral antibiotics and increase his diuresis to Lasix 40 mg IV twice a day. We will continue supplemental oxygen for goal saturation of 92%. Encourage him to get out of bed and ambulate. Spirometry use. (2) Community acquired pneumonia Impression: This was present on admission and cultures grew to coccus pneumonia. This was complicated by bacteremia. He was borderline febrile overnight but his white count continues to improve. We will continue oral Augmentin to complete 2 weeks of treatment. (3) Acute on chronic systolic heart failure Impression: Repeat echocardiogram showed his ejection fraction has improved to 50% compared to 35% previously. Given the IV hydration he received as well as the blood transfusion, His x-ray did reveal pulmonary vascular congestion although he does not appear hypervolemic on exam. Given his worsening hypoxia, will increase his IV diuresis to 40 mg twice a day. (4) Streptococcal bacteremia Impression: Repeat blood cultures have been negative. We will continue Augmentin and today is day 4 out of 14. (5) Anemia due to blood loss, chronic Impression: He did respond appropriately to 1 unit of packed red blood cell transfusion but his hemoglobin has been decreasing this morning. His EGD did reveal erosions of the stomach but no signs of active bleeding. We will continue to monitor his hemoglobin and recheck this evening. He does have iron deficiency and has been started on iron supplementation. (6) Gastritis determined by endoscopy Impression: This was evident on EGD as he had multiple erosions of the lesser curvature. Will continue Protonix 40 mg twice a day. Will resume his aspirin and Plavix and monitor for bleeding. (7) Acute kidney injury Impression: His initial injury was likely prerenal given the sepsis. He responded to IV fluids and his renal function has remained stable while being diuresed. We will continue to monitor his renal function as we increase his IV diuresis. Continue to hold his home losartan for now but will restart in the morning if his creatinine remains stable. (8) Hx of coronary artery disease Impression: Will resume his aspirin and Plavix and monitor for signs of bleeding. This was discussed with general surgery and they felt it was appropriate as long as he was on Protonix. We will continue his home beta-eneida and atorvastatin.
[2019-08-18] MEDS ORDERED: FUROSEMIDE 40 MG/4 ML VIAL IVP SCH (14:00)
[2019-08-18 14:42] LABS: HGB - HEMOGLOBIN 8.4 g/dL (14.0-18.0)
[2019-08-18] MEDS: CARBIDOPA/LEVODOPA 10 MG/100 MG TABLET PO SCH (16:53)
[2019-08-18] MEDS: ATORVASTATIN 40 MG TABLET PO SCH (20:56)
[2019-08-18] MEDS: GABAPENTIN 300 MG CAPSULE PO SCH (20:57)
[2019-08-19] MEDS: SODIUM CHLORIDE FLUSH 0.9% 10 ML SYRINGE IVP SCH ×2 (01:07→09:57)
[2019-08-19] MEDS: SODIUM CHLORIDE FLUSH 0.9% 10 ML SYRINGE IVP PRN (01:07)
[2019-08-19] MEDS: ACETAMINOPHEN 325 MG TABLET PO PRN (01:57)
[2019-08-19 04:59] LABS: BASOPHILS # (AUTO) 0.1 10^3/uL (0.0-0.1); BASOPHILS % (AUTO) 0.6 %; EOSINOPHILS # (AUTO) 0.2 10^3/uL (0.0-0.7); EOSINOPHILS % (AUTO) 1.5 %; HGB - HEMOGLOBIN 7.9 g/dL (14.0-18.0); LYMPHOCYTES # (AUTO) 0.6 10^3/uL (1.5-3.5); LYMPHOCYTES % (AUTO) 4.3 %; MEAN CORPUSCULAR HEMOGLOBIN 27.9 pg (27.0-31.0); MEAN CORPUSCULAR VOLUME 92.9 fL (80.0-94.0); MEAN PLATELET VOLUME 11.2 fL (7.4-11.4); MONOCYTES # (AUTO) 0.6 10^3/uL (0.0-1.0); MONOCYTES % (AUTO) 4.1 %; NEUTROPHILS # (AUTO) 12.9 10^3/uL (1.5-6.6); NEUTROPHILS % (AUTO) 88.7 %; PLT - PLATELET COUNT 231 10^3/uL (130-450); RED BLOOD COUNT 2.83 10^6/uL (4.70-6.10); RED CELL DISTRIBUTION WIDTH 16.4 % (12.0-15.0); WHITE BLOOD COUNT 14.5 x10^3/uL (4.8-10.8)
[2019-08-19 05:11] LABS: CALCIUM 8.1 mg/dL (8.5-10.3); CREATININE 1.2 mg/dL (0.6-1.2)
[2019-08-19] MEDS ORDERED: FUROSEMIDE 40 MG TABLET PO SCH (09:00)
[2019-08-19] MEDS ORDERED: LOSARTAN 50 MG TABLET PO SCH (09:00)
[2019-08-19 09:12] VITALS: BP 137/72
[2019-08-19] MEDS: ALLOPURINOL 100 MG TABLET PO SCH (09:57)
[2019-08-19] MEDS: ASPIRIN EC 81 MG TABLET PO SCH (09:57)
[2019-08-19] MEDS: FERROUS SULFATE 325 MG TABLET PO SCH (09:57)
[2019-08-19] MEDS: amLODIPine 5 MG TABLET PO SCH (09:57)
[2019-08-19] MEDS: guaiFENesin 600 MG TABLET PO SCH (09:58)
[2019-08-19] MEDS: carvediloL 12.5 MG TABLET PO SCH (09:58)
[2019-08-19] MEDS: CLOPIDOGREL 75 MG TABLET PO SCH (09:58)
[2019-08-19] MEDS: AMOX/CLAV 875 MG/125 MG TABLET PO SCH (09:58)
[2019-08-19] MEDS: PANTOPRAZOLE 40 MG TABLET PO SCH (09:58)
--- NOTE | 2019-08-19 11:35 | Discharge Plan ---
Discharge Plan Problem Reviewed?: Yes Disposition: Home, Self Care Condition: Good Prescriptions: Dicloxacillin [Dynapen] 250 mg PO Q6HR 7 Days #27 capsule Amox/Clav 875/125 [Augmentin 875/125] 1 tab PO BID 9 Days #19 tablet Ferrous Sulfate 325 mg PO DAILY #30 tablet Lactobacillus Rhamnosus GG [Culturelle] 1 cap PO DAILY #14 capsule Losartan [Cozaar] 50 mg PO DAILY #30 tablet Pantoprazole [Protonix] 40 mg PO BID #60 tablet Diet: Cardiac Activity Restrictions: Activity as Tolerated Shower Restrictions: No Driving Restrictions: No Instruction Topics: Pneumonia Dc Health Concerns: You were admitted to the hospital because of pneumonia. This was a significant infection that had spread to your blood. You treated with antibiotics and bacteria has been cleared from your blood. You initially required oxygen but with improvement of your pneumonia, you no longer require this. You will need to take 2 antibiotics for the pneumonia. One of them is called Augmentin which she will need to take twice a day for 9 more days. The other one is called dicloxacillin which she will need to take 4 times a day for 1 week. While in the hospital, you are found to have a low blood count. You required a transfusion of blood. There was concern that you may have been bleeding from your stomach and you underwent a procedure which is called an endoscopy. This found some inflammation in your stomach that appeared to be healing and may have been the cause of your bleeding. Your iron levels were also low and you were started on iron supplementation. You may continue to take your aspirin and Plavix but you will need to take Protonix 40 mg twice a day to prevent further bleeding. If you notice that you develop dark stools, please seek medical attention immediately. Also keep an eye out for signs of fatigue, weakness, shortness of breath, pale skin. Plan of Treatment: Please take Augmentin twice a day for 9 more days. Please take the dicloxacillin 4 times a day for 1 week. Please take a probiotic for the next 2 weeks to prevent an upset stomach and a gut infection from the antibiotics. These take the aspirin and Plavix twice a day. If you develop signs of bleeding please seek medical attention immediately. You may ultimately need to only be on 1 of these medications if you have further bleeding. Please stop taking the Pepcid or famotidine. You have been prescribed new medication called Protonix which you can take twice a day. This decreases the acids in the stomach to prevent further bleeding. Care Goals: Please follow-up with Dr. Spring within the next week. It is recommended that you have your blood counts and kidney numbers checked in one week to make sure they are stable. Assessment: Patient expressed understanding of the treatment and goals of care. No Smoking: If you smoke, Please STOP! Call for help. Follow-up with: Bossman Spring MD [Primary Care Provider] -
--- NOTE | 2019-08-19 11:49 | DISCHARGE SUMMARY ---
"Discharge Summary Admit Date: 08/14/19 Discharge Date: 08/19/19 Discharging Provider: Brock Rogers Primary Care Provider: Bossman Spring Code Status: Do Not Attempt Resuscitation Condition at Discharge: Good Discharge Disposition: 01 Home, Self Care - DIAGNOSES Admission Diagnoses: GI bleed Anemia Pneumonia Systolic congestive heart failure Pacemaker Acute kidney injury Do not intubate Discharge Diagnoses with Status of Each Condition: Acute hypoxic respiratory failure - resolved. Was initially secondary to pneumonia and worsened secondary to IV hydration in the setting of chronic systolic heart failure. He was diuresed with IV Lasix and was saturating well on room air prior to discharge. He will continue his home dose of Lasix 40 mg daily and continue his antibiotic treatment. Community-acquired pneumonia - improving. Cultures grew Streptococcus pneumonia and lower respiratory cultures grew staph aureus on the last day. He will continue Augmentin twice a day for 9 more days to complete 14 days of therapy. He will also be finishing dicloxacillin for 7 days for his staph aureus pneumonia. He was unable to be discharged on one antibiotic due to different resistances and medication interactions.This was discussed with pharmacy who were in agreement. Acute on chronic systolic heart failure - resolved. A repeat echocardiogram performed this hospitalization showed his EF had improved to 55%. He did have acute heart failure after receiving IV hydration. Responded well to IV diuresis and he appears euvolemic on discharge. We will continue his home medications as well as Lasix 40 mg daily. Streptococcal bacteremia - improving. Will continue Augmentin twice a day for 9 more days to complete 14 days of therapy. Anemia due to blood loss, chronic - stable. He underwent an EGD which showed erosions in the lesser curvature the stomach with no signs of active bleeding. General surgery was okay with him continuing aspirin and Plavix as long as you are taking Protonix 40 mg twice a day. I did discuss with the patient's family that if he develops dark tarry stools or signs of bleeding to return to the emergency department or seek medical attention immediately. He may ultimately require to discontinue 1 of the aspirin or Plavix if he has further bleeding. I have asked him to repeat labs in 1 week with his primary care physician to monitor his hemoglobin. Gastritis determined by endoscopy - stable. It was evident by endoscopy. He will continue Protonix 40 mg twice a day as recommended by general surgery.Vascular stop taking his home Pepcid. Acute kidney injury - resolved. The initial injury was likely prerenal secondary to sepsis. Is improved with IV fluids. Even with IV diuretics, his renal function was stable. He was resumed on his home medications. He would likely benefit from a BMP in 1 week to make sure his renal function is stable after reinitiating his ARB. History of coronary artery disease - stable. Has been stable throughout the hospitalization. He will continue his home beta-eneida as well as aspirin, Plavix, statin. - HPI History of Present Illness: H&P per Sharif Hodges on 08/19: Mr. Hernandez is a 83-year-old pleasant male with a history of recently GI bleed, pacemaker, CHF, CAD with a CABG in 2000, [place] on 07/2014 with 3 stents placements, HTN, who presents ER complain of weakness.He report he has been progressively weaker. Pt report he was so weak today morning, he can not get out from bed. Pt report he has been noticing some very dark stools for around a few month, he only took his iron pill recently. Today his HGB is 7.6. Pt report his aspirin and Plavix were stopped by his doctor because of recently GI bleed. Per ER provider report pt's occult test is positive. Pt's WBC is 36 in today ER route lab test, lactic acid is 3.2. pt report cough with sputum at home but he denies fever, chill. CXR and CT of abdomen reveal left pneumonia, otherwise CT of abdomen is unremarkable. pt is admitted for above medical reasons. - CONSULTS | PROCEDURES Consultations: General surgery for endoscopy Procedures: Endoscopy on August 17 which revealed multiple erosions over the lesser curvature of the stomach and a 8 cm hiatal hernia. No active bleeding. - HOSPITAL COURSE Hospital Course: Admitted for sepsis secondary to pneumonia and started on vancomycin and Zosyn empirically. He was given 1 unit of packed red blood cells for his anemia and treated with Protonix IV. His blood cultures grew strep to coccus pneumonia and his antibiotics were changed to Levaquin. Repeat blood cultures were negative. He became increasingly hypoxic after receiving IV fluids for his sepsis and required up to 4 L of oxygen during this hospitalization. He was diuresed with IV Lasix with improvement after x-ray showed pulmonary vascular congestion.He underwent an endoscopy which showed erosions over the lesser curvature of the stomach. There was no active bleeding this appeared to have been healing. Spoke with general surgery who stated the patient could continue the aspirin and Plavix as long as he was taking Protonix 40 mg twice a day. He was continued on iron supplementation given his iron deficiency. His hemoglobin remained stable. He was discharged on Augmentin to complete 9 more days of therapy for his Streptococcus pneumonia bacteremia. The day of discharge, his lower respiratory cultures grew staph aureus. After discussion with pharmacy it was felt that we best to add a second antibiotic given the different resistances and adverse reactions of certain antibiotics with his medications. Therefore he was started on Dicloxacillin for 7 days for staph aureus pneumonia. He was asked to follow- up with his primary care provider within 1 week to repeat a CBC and BMP. - ALLERGIES Allergies/Adverse Reactions: Allergies Allergy/AdvReac Type Severity Reaction Status Date / Time lisinopril AdvReac Unknown Verified 08/14/19 13:56 niacin AdvReac Unknown Verified 08/14/19 13:56 simvastatin [From Zocor] AdvReac Unknown Verified 08/14/19 13:56 - MEDICATIONS Home Medications: Ambulatory Orders Medication Instructions Recorded Confirmed Allopurinol 300 mg PO DAILY 10/24/14 08/14/19 Atorvastatin Calcium 40 mg PO QPM 10/24/14 08/14/19 Carbidopa/Levodopa [Carbidopa-Levo 1 tab PO QPM PRN 10/24/14 08/14/19 10-100 mg Odt] Carvedilol 37.5 mg PO BID 10/24/14 08/14/19 Furosemide [Lasix] 40 mg PO DAILY 10/24/14 08/14/19 Gabapentin 300 mg PO QPM 10/24/14 08/14/19 Amlodipine Besylate 5 mg PO QPM 08/14/19 08/14/19 Calcium Carbonate/Vitamin D3 1 tab PO BID 08/14/19 08/14/19 [Calcium 600-Vit D3 400 Tablet] Carbidopa/Levodopa 2 tab PO 1700 08/14/19 08/14/19 [Carbidopa-Levodopa 10-100 Tab] Cyanocobalamin [Vitamin B-12] 1,000 mcg IM Q28D 08/14/19 08/14/19 Amox/Clav 875/125 [Augmentin 1 tab PO BID 9 Days #19 tablet 08/19/19 875/125] Dicloxacillin [Dynapen] 250 mg PO Q6HR 7 Days #27 capsule 08/19/19 Ferrous Sulfate 325 mg PO DAILY #30 tablet 08/19/19 Lactobacillus Rhamnosus GG 1 cap PO DAILY #14 capsule 08/19/19 [Culturelle] Losartan [Cozaar] 50 mg PO DAILY #30 tablet 08/19/19 Pantoprazole [Protonix] 40 mg PO BID #60 tablet 08/19/19 - PHYSICAL EXAM AT DISCHARGE General Appearance: positive: No acute distress, Alert Eyes Bilateral: positive: Normal inspection ENT: positive: ENT inspection nml Neck: positive: Nml inspection Respiratory: positive: No respiratory distress, Other (Diminished breath sounds). negative: Wheezes, Rales, Rhonchi Cardiovascular: positive: Regular rate & rhythm, No murmur. negative: Tachycardia, Bradycardia Abdomen: positive: Non-tender, No distention. negative: Tenderness, Guarding, Rebound Skin: positive: No rash, Warm, Dry Extremities: positive: Full ROM, Pedal edema (There is trace pitting edema in his bilateral feet) Neurologic/Psychiatric: positive: Oriented x3. negative: Disoriented to person, Disoriented to place, Disoriented to time, Weakness - LABS Result Diagrams: 08/19/19 04:35 08/19/19 04:35 - DIAGNOSTIC IMAGING Diagnostic Imaging Results: Final report reviewed - SEPSIS Current Stage of Sepsis: Resolved Possible source of Sepsis: Pulmonary Sepsis Criteria: Respiratory: Increasing oxygen requirements, WBC count greater than 12,000 or less than 4000, Renal: urine output less than 0.5ml/kg/hr for 2 hours or creatinine gr, Metabolic: lactate > 2 mmol/L - FOLLOW UP Follow Up: He was asked to follow-up with his primary care physician within 1 week. He was asked to obtain further labs for his hemoglobin and renal function in 1 week. [place] to return to emergency department or seek medical attention if he has further signs of bleeding including dark tarry stools or bright red blood. I have also asked return emergency room if he develops worsening shortness of br eath, fever, fatigue, pallor. - TIME SPENT Time Spent in Discharge (Minutes): 45"
[2019-08-19] MEDS ORDERED: DICLOXACILLIN 250 MG CAPSULE PO SCH (12:00)
== END 2019-08-19 14:40 | disposition home or self-care (01) | DRG 871 ==
LOC: ED 13:43 → MS2 16:26 → UNDOADMIN 16:26 → UNDODISIN 08-15 16:50 → MS3 08-19 → UNDODISIN 08-19 14:40
PROVIDERS: ADMIT Nurse Practitioner Gerontology; ATTEND Internal Medicine
PROC: 30233N1 Transfusion of Nonautologous Red Blood Cells into Peripheral Vein, Percutaneous Approach (ICD-10-PCS; 2019-08-14)
PROC: 0DB68ZX Excision of Stomach, Via Natural or Artificial Opening Endoscopic, Diagnostic (ICD-10-PCS; 2019-08-17)
PROC: 0DB58ZX Excision of Esophagus, Via Natural or Artificial Opening Endoscopic, Diagnostic (ICD-10-PCS; 2019-08-17)
PROC: 0DB98ZX Excision of Duodenum, Via Natural or Artificial Opening Endoscopic, Diagnostic (ICD-10-PCS; principal; 2019-08-17 15:45)
DX: K92.1 Melena (principal); J18.1 Lobar pneumonia, unspecified organism; R79.89 Other specified abnormal findings of blood chemistry; A40.3 Sepsis due to Streptococcus pneumoniae; I50.9 Heart failure, unspecified; K25.4 Chronic or unspecified gastric ulcer with hemorrhage; J15.211 Pneumonia due to Methicillin susceptible Staphylococcus aureus; J96.01 Acute respiratory failure with hypoxia; I50.23 Acute on chronic systolic (congestive) heart failure; J13 Pneumonia due to Streptococcus pneumoniae; R65.20 Severe sepsis without septic shock; K29.71 Gastritis, unspecified, with bleeding; Z95.810 Presence of automatic (implantable) cardiac defibrillator; N17.9 Acute kidney failure, unspecified; Z16.20 Resistance to unspecified antibiotic; T50.3X5A Adverse effect of electrolytic, caloric and water-balance agents, initial encounter; Y92.230 Patient room in hospital as the place of occurrence of the external cause; I11.0 Hypertensive heart disease with heart failure; D50.0 Iron deficiency anemia secondary to blood loss (chronic); I25.10 Atherosclerotic heart disease of native coronary artery without angina pectoris; E78.00 Pure hypercholesterolemia, unspecified; E86.0 Dehydration; I48.91 Unspecified atrial fibrillation; K21.9 Gastro-esophageal reflux disease without esophagitis; K44.9 Diaphragmatic hernia without obstruction or gangrene; I25.2 Old myocardial infarction; Z66 Do not resuscitate; Z95.0 Presence of cardiac pacemaker; Z79.899 Other long term (current) drug therapy; Z95.1 Presence of aortocoronary bypass graft; Z95.5 Presence of coronary angioplasty implant and graft; Z87.891 Personal history of nicotine dependence; Z88.8 Allergy status to other drugs, medicaments and biological substances
CPT/HCPCS: 36415; 71045; 74176; 80048; 80053; 80202; 81003; 82272; 82803; 83605; 83690; 83735; 83880; 85014; 85018; 85025; 85027; 85610; 86850; 86900; 86901; 86920; 87040; 87070; 87077; 87181; 87205; 93005; 93306; 96365; 99283; 99285; A9270; J3370; J7120; P9016; 81001; 87086

== ENCOUNTER 2019-08-30 08:00 | Outpatient (CLI) | payer MEDICARE ==
[2019-08-30 19:10] LABS: BASOPHILS # (AUTO) 0.1 10^3/uL (0.0-0.1); BASOPHILS % (AUTO) 1.4 %; EOSINOPHILS # (AUTO) 0.2 10^3/uL (0.0-0.7); EOSINOPHILS % (AUTO) 2.7 %; HGB - HEMOGLOBIN 9.8 g/dL (14.0-18.0); LYMPHOCYTES # (AUTO) 1.4 10^3/uL (1.5-3.5); LYMPHOCYTES % (AUTO) 15.9 %; MEAN CORPUSCULAR HEMOGLOBIN 27.8 pg (27.0-31.0); MEAN CORPUSCULAR HGB CONC 29.7 g/dL (32.0-36.0); MEAN CORPUSCULAR VOLUME 93.5 fL (80.0-94.0); MEAN PLATELET VOLUME 11.5 fL (7.4-11.4); MONOCYTES # (AUTO) 0.6 10^3/uL (0.0-1.0); MONOCYTES % (AUTO) 7.4 %; NEUTROPHILS # (AUTO) 6.2 10^3/uL (1.5-6.6); NEUTROPHILS % (AUTO) 71.9 %; PLT - PLATELET COUNT 430 10^3/uL (130-450); RED BLOOD COUNT 3.53 10^6/uL (4.70-6.10); RED CELL DISTRIBUTION WIDTH 16.1 % (12.0-15.0); WHITE BLOOD COUNT 8.6 x10^3/uL (4.8-10.8)
[2019-08-30 19:20] LABS: % IRON SATURATION 17 % (20-50); ALBUMIN 3.7 g/dL (3.2-5.5); ALKALINE PHOSPHATASE 75 IU/L (42-121); ALT ALANINE AMINOTRANSFERASE 25 IU/L (10-60); AST ASPARTATE AMINOTRANSFERASE 17 IU/L (10-42); BILIRUBIN,TOTAL 0.6 mg/dL (0.2-1.0); BUN - BLOOD UREA NITROGEN 27 mg/dL (6-20); CALCIUM 8.9 mg/dL (8.5-10.3); CARBON DIOXIDE - CO2 29 mmol/L (21-32); CHLORIDE 101 mmol/L (101-111); CHOL/HDL RATIO 3.5 (<5.0); CHOLESTEROL 105 mg/dL; CREATININE 1.3 mg/dL (0.6-1.2); GFR - MDRD 53 (>89); GLUCOSE 129 mg/dL (70-100); HDL CHOLESTEROL 30 mg/dL; IRON 51 ug/dL (45-182); LDL CHOLESTEROL,CALCULATED 39 mg/dL; LDL/HDL RATIO 1.3 (<3.6); SODIUM 139 mmol/L (135-145); TOTAL IRON BINDING CAPACITY 300 ug/dL (250-450); TOTAL PROTEIN 7.3 g/dL (6.7-8.2); TRANSFERRIN 214 mg/dL (180-329); VLDL CHOLESTEROL 36 mg/dL
[2019-08-30 19:36] LABS: FERRITIN 65.5 ng/mL (23.9-336.2)
== END 2019-08-30 23:59 | disposition home or self-care (01) ==
LOC: LAB.WCP 08:00
PROVIDERS: ATTEND Family Medicine
DX: I48.91 Unspecified atrial fibrillation (principal); E88.81 Metabolic syndrome and other insulin resistance; D64.9 Anemia, unspecified; E78.5 Hyperlipidemia, unspecified; I25.5 Ischemic cardiomyopathy; R94.6 Abnormal results of thyroid function studies; K92.2 Gastrointestinal hemorrhage, unspecified
CPT/HCPCS: 36415; 80053; 80061; 82728; 83540; 83721; 83880; 84443; 84466; 85025

== ENCOUNTER 2019-10-04 10:01 | Outpatient (CLI) | payer MEDICARE ==
[2019-10-04 13:37] LABS: BASOPHILS # (AUTO) 0.1 10^3/uL (0.0-0.1); BASOPHILS % (AUTO) 0.9 %; EOSINOPHILS # (AUTO) 0.3 10^3/uL (0.0-0.7); EOSINOPHILS % (AUTO) 3.7 %; HGB - HEMOGLOBIN 9.8 g/dL (14.0-18.0); LYMPHOCYTES # (AUTO) 1.3 10^3/uL (1.5-3.5); LYMPHOCYTES % (AUTO) 15.3 %; MEAN CORPUSCULAR HGB CONC 29.6 g/dL (32.0-36.0); MEAN CORPUSCULAR VOLUME 91.2 fL (80.0-94.0); MEAN PLATELET VOLUME 12.9 fL (7.4-11.4); MONOCYTES # (AUTO) 0.6 10^3/uL (0.0-1.0); MONOCYTES % (AUTO) 7.3 %; NEUTROPHILS # (AUTO) 6.3 10^3/uL (1.5-6.6); NEUTROPHILS % (AUTO) 72.3 %; PLT - PLATELET COUNT 254 10^3/uL (130-450); RED BLOOD COUNT 3.63 10^6/uL (4.70-6.10); RED CELL DISTRIBUTION WIDTH 17.2 % (12.0-15.0); WHITE BLOOD COUNT 8.7 x10^3/uL (4.8-10.8)
[2019-10-04 14:11] LABS: % IRON SATURATION 15 % (20-50); IRON 45 ug/dL (45-182); TOTAL IRON BINDING CAPACITY 305 ug/dL (250-450); TRANSFERRIN 218 mg/dL (180-329)
== END 2019-10-04 23:59 ==
LOC: LAB.WCP 10:01
PROVIDERS: ATTEND Family Medicine
DX: I48.91 Unspecified atrial fibrillation (principal); I25.5 Ischemic cardiomyopathy; K92.2 Gastrointestinal hemorrhage, unspecified
CPT/HCPCS: 36415; 82728; 83540; 84466; 85025

== ENCOUNTER → 2019-11-23 | Outpatient (CLI) | payer MEDICARE ==
[2019-11-23 18:32] LABS: BASOPHILS # (AUTO) 0.1 10^3/uL (0.0-0.1); BASOPHILS % (AUTO) 0.9 %; EOSINOPHILS # (AUTO) 0.2 10^3/uL (0.0-0.7); EOSINOPHILS % (AUTO) 2.8 %; HGB - HEMOGLOBIN 10.7 g/dL (14.0-18.0); LYMPHOCYTES # (AUTO) 0.9 10^3/uL (1.5-3.5); MEAN CORPUSCULAR HEMOGLOBIN 28.9 pg (27.0-31.0); MEAN CORPUSCULAR HGB CONC 29.6 g/dL (32.0-36.0); MEAN CORPUSCULAR VOLUME 97.6 fL (80.0-94.0); MEAN PLATELET VOLUME 12.9 fL (7.4-11.4); MONOCYTES # (AUTO) 0.5 10^3/uL (0.0-1.0); NEUTROPHILS # (AUTO) 5.8 10^3/uL (1.5-6.6); NEUTROPHILS % (AUTO) 77.5 %; PLT - PLATELET COUNT 230 10^3/uL (130-450); RED CELL DISTRIBUTION WIDTH 18.2 % (12.0-15.0); WHITE BLOOD COUNT 7.5 x10^3/uL (4.8-10.8)
[2019-11-23 19:36] LABS: CALCIUM 8.8 mg/dL (8.5-10.3); CREATININE 1.5 mg/dL (0.6-1.2)
== END ==
LOC: LAB.WCP 11:43
PROVIDERS: ATTEND Family Medicine
DX: K92.2 Gastrointestinal hemorrhage, unspecified (principal); D64.9 Anemia, unspecified
CPT/HCPCS: 36415; 80048; 82728; 83540; 84466; 85025

== ENCOUNTER 2020-12-11 08:00 | Outpatient (CLI) | payer MEDICARE ==
[2020-12-11 12:03] LABS: BASOPHILS # (AUTO) 0.1 10^3/uL (0.0-0.1); EOSINOPHILS # (AUTO) 0.3 10^3/uL (0.0-0.7); HCT - HEMATOCRIT 39.1 % (42.0-52.0); LYMPHOCYTES # (AUTO) 1.1 10^3/uL (1.5-3.5); MEAN CORPUSCULAR HEMOGLOBIN 29.2 pg (27.0-31.0); MEAN CORPUSCULAR HGB CONC 30.7 g/dL (32.0-36.0); MEAN CORPUSCULAR VOLUME 95.1 fL (80.0-94.0); MEAN PLATELET VOLUME 13.2 fL (7.4-11.4); MONOCYTES # (AUTO) 0.6 10^3/uL (0.0-1.0); MONOCYTES % (AUTO) 6.6 %; NEUTROPHILS # (AUTO) 6.7 10^3/uL (1.5-6.6); NEUTROPHILS % (AUTO) 76.9 %; PLT - PLATELET COUNT 244 10^3/uL (130-450); RED BLOOD COUNT 4.11 10^6/uL (4.70-6.10); RED CELL DISTRIBUTION WIDTH 16.1 % (12.0-15.0); WHITE BLOOD COUNT 8.8 x10^3/uL (4.8-10.8)
[2020-12-11 12:04] LABS: % IRON SATURATION 25 % (20-50); ALBUMIN/GLOBULIN RATIO 1.3 (1.0-2.2); ALKALINE PHOSPHATASE 74 IU/L (42-121); ALT ALANINE AMINOTRANSFERASE < 10 IU/L (10-60); AST ASPARTATE AMINOTRANSFERASE 16 IU/L (10-42); BILIRUBIN,TOTAL 0.8 mg/dL (0.2-1.0); BUN - BLOOD UREA NITROGEN 33 mg/dL (6-20); CALCIUM 9.1 mg/dL (8.5-10.3); CARBON DIOXIDE - CO2 28 mmol/L (21-32); CHLORIDE 103 mmol/L (101-111); CHOL/HDL RATIO 5.6 (<5.0); CHOLESTEROL 234 mg/dL; CREATININE 1.6 mg/dL (0.6-1.2); GFR - MDRD 41 (>89); GLUCOSE 110 mg/dL (70-100); HDL CHOLESTEROL 42 mg/dL; IRON 66 ug/dL (45-182); LDL CHOLESTEROL,CALCULATED 153 mg/dL; LDL/HDL RATIO 3.6 (<3.6); POTASSIUM 3.8 mmol/L (3.5-5.0); SODIUM 140 mmol/L (135-145); TOTAL IRON BINDING CAPACITY 265 ug/dL (250-450); TRANSFERRIN 189 mg/dL (180-329); TRIGLYCERIDES 196 mg/dL; URIC ACID 7.4 mg/dL (2.6-7.2); VLDL CHOLESTEROL 39 mg/dL
[2020-12-11 12:08] LABS: THYROID STIMULATING HORMONE 4.9 uIU/mL (0.34-5.60)
[2020-12-11 12:15] LABS: FERRITIN 131.8 ng/mL (23.9-336.2)
[2020-12-11 12:22] LABS: CREATININE,URINE 122.8 mg/dL; MICROALBUM/CREATININE RATIO,UR 208.5 ug/mg (<30.0); MICROALBUMIN,URINE 25.6 mg/dL (0-300.0)
[2020-12-11 12:24] LABS: ESTIMATED AVERAGE GLUCOSE 123 mg/dL (70-100); HEMOGLOBIN A1c% 5.9 % (4.27-6.07)
[2020-12-13 21:11] LABS: ALPHA 1 GLOBULIN 0.3 g/dL (0.2-0.3); ALPHA 2 GLOBULIN 0.6 g/dL (0.5-0.9); BETA 1 GLOBULIN 0.4 g/dL (0.4-0.6); BETA 2 GLOBULIN 0.2 g/dL (0.2-0.5)
== END 2020-12-11 23:59 | disposition home or self-care (01) ==
LOC: LAB.WCP 08:00
PROVIDERS: ATTEND Internal Medicine
DX: I48.91 Unspecified atrial fibrillation (principal); I25.10 Atherosclerotic heart disease of native coronary artery without angina pectoris; I73.9 Peripheral vascular disease, unspecified; R00.1 Bradycardia, unspecified; K92.2 Gastrointestinal hemorrhage, unspecified; I11.0 Hypertensive heart disease with heart failure; D64.9 Anemia, unspecified; I50.9 Heart failure, unspecified; E78.5 Hyperlipidemia, unspecified; G62.9 Polyneuropathy, unspecified; R73.03 Prediabetes; N40.0 Benign prostatic hyperplasia without lower urinary tract symptoms; R94.6 Abnormal results of thyroid function studies; M10.9 Gout, unspecified
CPT/HCPCS: 36415; 80053; 80061; 81599; 82043; 82570; 82607; 82728; 83036; 83540; 83721; 84153; 84155; 84165; 84443; 84466; 84550; 85025; 86334

== ENCOUNTER 2020-12-25 15:06 | Outpatient (CLI) | payer MEDICARE ==
--- NOTE | 2020-12-25 16:52 | Ultrasound Report ---
PROCEDURE: Duplex Aorta Complete INDICATIONS: CLAUDICATION BILAT TECHNIQUE: Doppler examination of the aorta and iliac arteries is performed. COMPARISON: None. FINDINGS: Examination is limited by bowel gas and body habitus. Proximal aortic peak systolic velocity: 78 cm/s Mid abdominal aortic peak systolic velocity: 83 cm/s Distal abdominal aortic peak systolic velocity: 81 cm/s Right: Proximal common iliac artery: Not seen Distal common iliac artery: Not seen Proximal external iliac artery: 92 cm/s Distal external iliac artery: 79 cm/s Common femoral artery: 81 cm/s Left: Proximal common iliac artery: Not seen Distal common iliac artery: Not seen Proximal external iliac artery: 72 cm/s Distal external iliac artery: 117 cm per second Common femoral artery: 126 cm/s IMPRESSION: 1. Limited examination demonstrating no evidence of significant stenosis. MR angiography runoff exami nation may be helpful for further assessment. Reviewed by: Aparna Shelton MD on 12/25/2020 4:51 PM PDT Approved by: Aparna Shelton MD on 12/25/2020 4:51 PM PDT Station ID: [id number]
--- NOTE | 2020-12-25 16:55 | Ultrasound Report ---
PROCEDURE: Duplex Lwr Ext Arterial Bilat INDICATIONS: CLAUDICATION BILTERAL TECHNIQUE: Color and pulse Doppler interrogation was performed of both lower extremity arterial systems, with im age documentation. COMPARISON: None FINDINGS: Right lower extremity: Common femoral artery: 80 cm/sec, with biphasic flow. Deep femoral artery: 39 cm/sec, with monophasic flow. Proximal superficial femoral artery: 106 cm/sec, with biphasic flow. Mid superficial femoral artery: 76 cm/sec, with biphasic flow. Distal superficial femoral artery: 100 cm/sec, with biphasic flow. Popliteal artery: 58 cm/sec, with biphasic flow. Posterior tibial artery: 58 cm/sec, with biphasic flow. Anterior tibial artery/dorsalis pedis: 44 cm/sec, with biphasic and monophasic flow. Braga-scale imaging description: Mild diffuse plaque Left lower extremity: Common femoral artery: 124 cm/sec, with biphasic flow. Deep femoral artery: 194 cm/sec, with biphasic flow. Proximal superficial femoral artery: 114 cm/sec, with biphasic flow. Mid superficial femoral artery: 74 cm/sec, with biphasic flow. Distal superficial femoral artery: 150 cm/sec, with biphasic flow. Popliteal artery: 33 cm/sec, with biphasic flow. Posterior tibial artery: 114 cm/sec, with biphasic and monophasic flow. Anterior tibial artery/dorsalis pedis: 24 cm/sec, with biphasic and monophasic flow. Braga-scale imaging description: Mild diffuse plaque IMPRESSION: 1. No significant right-sided outflow stenosis. 2. 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 3. Monophasic waveforms within the bilateral runoff vessels, suggestive of runoff vessel stenoses. 4. MR angiography runoff examination is recommended for further assessment. Reviewed by: Aparna Shelton MD on 12/25/2020 4:53 PM PDT Approved by: Aparna Shelton MD on 12/25/2020 4:53 PM PDT Station ID: [id number]
== END 2020-12-25 15:07 | disposition home or self-care (01) ==
LOC: DI 15:06
PROVIDERS: ATTEND Internal Medicine
DX: I70.212 Atherosclerosis of native arteries of extremities with intermittent claudication, left leg (principal)
CPT/HCPCS: 93925; 93978

== ENCOUNTER 2021-07-17 12:06 | Outpatient (CLI) | payer MEDICARE ==
[2021-07-17 18:06] LABS: CALCIUM 8.9 mg/dL (8.5-10.3); CREATININE 1.6 mg/dL (0.6-1.2); POTASSIUM 3.5 mmol/L (3.5-5.0)
[2021-07-17 18:21] LABS: THYROID STIMULATING HORMONE 3.18 uIU/mL (0.34-5.60)
[2021-07-20 10:51] LABS: KAPPA/LAMBDA LC FREE RATIO 1.28 (0.26-1.65)
== END 2021-07-17 23:59 | disposition home or self-care (01) ==
LOC: LAB.WCP 12:06
PROVIDERS: ATTEND Internal Medicine
DX: G62.9 Polyneuropathy, unspecified (principal)
CPT/HCPCS: 36415; 80048; 81599; 82607; 83883; 83921; 84443; 86334